=== PATIENT | female | born 1945 | race Caucasian/White ===

== ENCOUNTER 2020-01-27 09:48 | Emergency (ER) | payer BC, MEDICARE, SELFPAY ==
[2020-01-27 10:18] VITALS: BP 172/74; PULSE 63; RESP 16; TEMP 36.8; O2SAT 98; BMI 24.0
--- NOTE | 2020-01-27 10:26 | HMH.EDUTC ---
[facility] Disposition Clinical Impression: Exposure to COVID-19 virus Disposition: Home, Self-Care Condition on Discharge: Good Instructions: Preventing the Spread of Coronavirus Discharge Instructions Additional Instructions: Drink plenty of fluids. Take tylenol for pain or fever. Return if you begin to have difficulty breathing. Follow up with your regular doctor. GO TO THE ER FOR ANY WORSENING SYMPTOMS Referrals: Jesús Doyle MD [Primary Care Provider] - Time of Disposition: 10:46 Medical Decision Making - Medical Records Medical records reviewed: No: I reviewed the patient's medical records. - Pierre Inquiry Pt receiving controlled substance: No Vital Signs: 01/27/20 10:18 01/27/20 11:01 Temperature 98.3 F 98.5 F Temperature Source Oral Oral Pulse Rate 80 Pulse Rate [Right] 63 Respiratory Rate 16 16 Blood Pressure 170/72 H Blood Pressure [Right Arm] 172/74 H Blood Pressure Mean [Right Arm] 106 Blood Pressure Source Automatic Cuff Blood Pressure Source [Right Arm] Automatic Cuff Blood Pressure Position Sitting Blood Pressure Position [Right Arm] Sitting 02 Sat by Pulse Oximetry 98 Oxygen Delivery Method Room Air Room Air [facility] HPI - General Stated complaint: covid exposure Time Seen by Provider: 01/27/20 10:26 - History of Present Illness Provider Complaint: She has been exposed to covid. She denies any symptoms at this time. [facility] History - Hepatitis A Screen Attestation statement:: This patient has been screened for Hepatitis A risk factors. I have reviewed the patient's past medical history: Yes ROS Obtained: Yes All systems reviewed & no additional complaints - Constitutional Constitutional: Reports system reviewed and no additional complaints, except as docu - Eyes Eyes: Reports system reviewed and no additional complaints, except as docu - ENT Ears, Nose, Mouth, and Throat: Reports system reviewed and no additional complaints, except as docu - Cardiovascular Cardiovascular: Reports system reviewed and no additional complaints, except as docu - Respiratory Respiratory: Yes system reviewed and no additional complaints, except as docu - Gastrointestinal Gastrointestingal: Reports: system reviewed and no additional complaints, except as docu Physical Exam - General General appearance: alert, in no apparent distress - Head Head exam: atraumatic, normocephalic, normal inspection - Eye Eye exam: Present: normal appearance, PERRL, EOMI - ENT ENT exam: Present: normal exam, normal oropharynx, mucous membranes moist, TM's normal bilaterally, normal external ear exam - Neck Neck exam: Present: normal inspection, full ROM, trachea midline. Absent: meningismus, lymphadenopathy - Chest Chest inspection: Present: normal inspection, symmetric chest wall rise. Absent: tenderness - Respiratory Respiratory exam: Present: normal lung sounds bilaterally. Absent: respiratory distress - Cardiovascular Cardiovascular exam: Present: regular rate, normal rhythm. Absent: JVD - Abdominal Exam Abdominal exam: Present: soft, normal bowel sounds. Absent: distention, tenderness, guarding - Extremities Exam Extremities exam: Present: normal inspection, full ROM, normal capillary refill. Absent: calf tenderness - Back Exam Back exam: Present: normal inspection. Absent: tenderness - Neurological Exam Neurological exam: Present: alert, oriented X3 - Psychiatric Psychiatric exam: Present: normal affect, normal mood - Skin Skin exam: Present: warm, dry, intact, normal color - Lymphatic Lymphatic Findings: no adenopathy
[2020-01-27 11:01] VITALS: BP 170/72; PULSE 80; RESP 16; TEMP 36.9; O2SAT 98
== END 2020-01-27 11:02 | disposition home or self-care (01) ==
PROVIDERS: Emergency Provider Nurse Practitioner Family; PCP Family Medicine
DX: Z20.828 Contact with and (suspected) exposure to other viral communicable diseases (principal)
CPT/HCPCS: 99201; U0003

== ENCOUNTER 2023-05-01 19:07 | Emergency (ER) | payer MEDICARE, OTHER, SELFPAY ==
[2023-05-01 19:09] VITALS: BP 124/89; PULSE 93; RESP 16; TEMP 36.8; O2SAT 96; BMI 22.6
--- NOTE | 2023-05-01 19:39 | XR_ITS ---
PROCEDURE INFORMATION: Exam: XR Left Wrist Exam date and time: 05/01/2023 7:40 PM Age: 77 years old Clinical indication: Injury or trauma; Fall; Blunt trauma (contusions or hematomas); Wrist; Left TECHNIQUE: Imaging protocol: Radiologic exam of the left wrist. Views: 3 or more views. COMPARISON: No relevant prior studies available. FINDINGS: Bones/joints: No fracture or dislocation. Severe degenerative change at the 1st carpometacarpal joint. Moderate degenerative change at the STT joint. Osteopenia. Soft tissues: Normal. IMPRESSION: No fracture or dislocation.
--- NOTE | 2023-05-01 19:40 | XR_ITS ---
PROCEDURE INFORMATION: Exam: XR Left Knee Exam date and time: 05/01/2023 7:40 PM Age: 77 years old Clinical indication: Injury or trauma; Fall; Blunt trauma; Knee; Left TECHNIQUE: Imaging protocol: Radiologic exam of the left knee. Views: 3 views. COMPARISON: No relevant prior studies available. FINDINGS: Bones/joints: No fracture or dislocation. Moderate/severe tricompartmental degenerative joint disease. Osteopenia. Trace suprapatellar joint effusion. Soft tissues: Normal. IMPRESSION: No fracture or dislocation. Moderate/severe tricompartmental degenerative joint disease.
--- NOTE | 2023-05-01 20:39 | ED_ITS ---
Discharge Plan Disposition Patient Disposition: Home, Self-Care Chief Complaint: Fall Referrals Follow up/Referrals: Jesús Doyle MD [Primary Care Provider] - See instructions Activity Restrictions/Add. Instructions Additional Instructions/Restrictions: Talk to your family doctor about starting vitamin D supplementation for osteopenia. Call your family doctor to establish care for this visit to the emergency department and schedule follow-up within 48 hours to ensure improvement. If you have any worsening of your condition or any other concerning signs or symptoms, return to the emergency department or your primary care doctor for further evaluation. Clinical Impressions Clinical Impression: Traumatic ecchymosis of left hand Qualifiers: Encounter type: initial encounter Qualified Code(s): S60.222A - Contusion of left hand, initial encounter Traumatic ecchymosis of left knee Qualifiers: Encounter type: initial encounter Qualified Code(s): S80.02XA - Contusion of left knee, initial encounter Fall Qualifiers: Encounter type: initial encounter Qualified Code(s): W19.XXXA - Unspecified fall, initial encounter Discharge ED Provider: Curt Rankin General Adult HPI General Chief complaint: Fall Stated complaint: AO 05/01/23 1200 Injury left knee,left hand Time Seen by Provider: 05/01/23 19:12 Mode of Arrival: Ambulatory Source of Information: Patient and Relative Limitations: No Limitations Description of Symptoms (Recalled from ER Triage Doc. by RN): fell forward on left side- mostly left hand and left knee; no LOC History of Present Illness HPI narrative: Otherwise healthy 77-year-old female not currently taking any medications presenting with fall. States that she tripped over the carpet just prior to arrival. Braced her self with her left knee and left hand. Has bruising without pain on her left hand and left knee, no pain in her left knee or left hand at this time. Came in to make sure everything was okay. Related Data Allergies Allergy/AdvReac Type Severity Reaction Status Date / Time No Known Allergies Allergy Verified 05/01/23 19:39 [facility] Disclaimer: The information contained in this section may have been updated after the patient was seen, as this information can be updated by other users. Social History Smoking Status: Former smoker alcohol intake: never current occupational status: retired Travel in the last 8 weeks: None ROS Obtained: Yes All systems reviewed & no additional complaints except as documented Physical Exam General General appearance: alert and in no apparent distress Head Head exam: atraumatic and normocephalic Eye Eye exam: Present normal appearance, PERRL and EOMI ENT ENT exam: Present mucous membranes moist Neck Neck exam: Present normal inspection, full ROM and trachea midline Respiratory Respiratory exam: Absent respiratory distress, wheezes, stridor, accessory muscle use or prolonged expiratory phase Cardiovascular Cardiovascular exam: Present normal rhythm Abdominal Exam Abdominal exam: Present soft; Absent distention, tenderness, guarding, rebound or rigidity Extremities Exam Extremities exam: Present other (Bruising about left wrist/hand and left knee. Range of motion intact and full both areas. Neurovascularly intact distally both injuries. No evidence of tenderness); Absent edema Neurological Exam Neurological exam: Present alert, oriented X3, CN II-XII intact and normal gait; Absent motor sensory deficit Skin Skin exam: Present warm and dry; Absent diaphoresis or erythema Medical Decision Making Medical Records Medical records reviewed: Yes I reviewed the patient's medical records. Pierre Inquiry Pt receiving controlled substance: No Pierre was queried for this patient: No Vital Signs: 05/01/23 19:09 Temperature 98.3 F Temperature Source Oral Pulse Rate [Right Brachial] 93 H Respiratory Rate 16 Blood Pressure [Right Arm] 124/89 Blood Pressure Mean [Right Arm] 100 Blood Pressure Source [Right Arm] Automatic Cuff Blood Pressure Position [Right Arm] Sitting 02 Sat by Pulse Oximetry 96 Oxygen Delivery Method Room Air Orders (Tests/Meds): ORDERS Category Date Time Status Knee XR left 3 views [XR knee LT 3V] Stat Exams 05/01/23 19:40 Completed Wrist XR left minimum 3 views [XR wrist LT min 3V] Stat Exams 05/01/23 19:39 Completed Medical Decision Narrative: 77-year-old female who is otherwise healthy not taking any medications presenting with fall and left knee/left hand bruising. History was obtained via conversation with patient. On arrival, patient hemodynamically stable, alert, oriented x4, appropriate, GCS 15, moving all extremities spontaneously, pupils equal and reactive to light. Full physical exam performed and significant for bruising about left hand and left knee. Able to bear weight without issue. Range of motion intact and full left wrist and left hand. Neurovascularly intact both extremities. No outward signs of deformity no scaphoid tenderness. Differential includes fracture, sprain, dislocation, among others. Independent interpretation of x-rays demonstrated no bony abnormality of the hand or wrist. Also no bony abnormality acutely of the knee. Given patient presentation, workup, history, this most likely represents wrist and knee bruising in the setting of fall. Given low bone density which is apparent on x-rays, it was recommended that patient follow-up with her family doctor and begin taking vitamin D supplements. She is agreeable to this plan. Because patient at [facility] without signs or symptoms of clinical decompensation, deemed appropriate for discharge. Results were relayed to patient who voiced understanding and were agreeable to outpatient management and follow up. At the time of discharge the patient was hemodynamically stable, tolerating PO, and mobilizing appropriately. Critical Care Critical Care Time Critical Care Time: No
[2023-05-01 20:51] VITALS: BP 106/65; PULSE 106; RESP 18; TEMP 36.7; O2SAT 97
== END 2023-05-01 20:53 | disposition home or self-care (01) ==
PROVIDERS: Emergency Provider Emergency Medicine; PCP Family Medicine
DX: S60.222A Contusion of left hand, initial encounter (principal); S80.02XA Contusion of left knee, initial encounter; Z87.891 Personal history of nicotine dependence; W01.0XXA Fall on same level from slipping, tripping and stumbling without subsequent striking against object, initial encounter
CPT/HCPCS: 73110; 73562; 99283

== ENCOUNTER 2024-09-05 21:13 | Inpatient (IN) | payer OTHER, MEDICARE, SELFPAY ==
[2024-09-05] VITALS (7 sets, daily range): BP systolic 126–175; BP diastolic 84–123; PULSE 54–89; RESP 14–23; TEMP 36.5; O2SAT 94–98; BMI 25.7
--- NOTE | 2024-09-05 21:47 | XR_ITS ---
PROCEDURE INFORMATION: Exam: XR Chest Exam date and time: 09/05/2024 9:45 PM Age: 79 years old Clinical indication: Other: Possible pneumonia; Additional info: Confusion, possible pneumonia TECHNIQUE: Imaging protocol: Radiologic exam of the chest. Views: 2 views. COMPARISON: No relevant prior studies available. FINDINGS: Lungs: Unremarkable. No consolidation. Pleural spaces: Unremarkable. No pleural effusion. No pneumothorax. Heart/Mediastinum: Unremarkable. No cardiomegaly. Vasculature: Unremarkable. Bones/joints: Unremarkable. IMPRESSION: No acute findings.
--- NOTE | 2024-09-05 21:47 | CT_ITS ---
PROCEDURE INFORMATION: Exam: CT Head Without Contrast Exam date and time: 09/05/2024 10:05 PM Age: 79 years old Clinical indication: Other: Confusion; Additional info: Confusion, forehead bruising TECHNIQUE: Imaging protocol: Computed tomography of the head without contrast. Radiation optimization: All CT scans at this facility use at least one of these dose optimization techniques: automated exposure control; mA and/or kV adjustment per patient size (includes targeted exams where dose is matched to clinical indication); or iterative reconstruction. COMPARISON: CT HEAD/BRAIN WO CON 09/05/2024 10:05 PM FINDINGS: Brain: There is moderate diffuse cerebral volume loss present. Multiple subcortical and deep hypoattenuating white matter foci are present, likely related to small vessel senescent changes and can also be seen with prior infectious / inflammatory insult, or prior traumatic events. No hyperattenuating foci are identified to suggest acute intracranial hemorrhage. Cerebral ventricles: No ventriculomegaly. Paranasal sinuses: Visualized sinuses are unremarkable. No fluid levels. Mastoid air cells: Visualized mastoid air cells are well aerated. Bones: Unremarkable. No acute fracture. Soft tissues: Multiple subcutaneous calcified masses of the apical cranial soft tissues largest measures 2.7 cm in diameter suggesting epidermal inclusion cyst. IMPRESSION: 1. Multiple subcortical and deep hypoattenuating white matter foci are present, likely related to small vessel senescent changes and can also be seen with prior infectious / inflammatory insult, or prior traumatic events. 2. No hyperattenuating foci are identified to suggest acute intracranial hemorrhage.
--- NOTE | 2024-09-05 21:47 | CT_ITS ---
PROCEDURE INFORMATION: Exam: CT Cervical Spine Without Contrast Exam date and time: 09/05/2024 10:07 PM Age: 79 years old Clinical indication: Injury or trauma; Fall; Additional info: Suspected fall TECHNIQUE: Imaging protocol: Computed tomography of the cervical spine without contrast. Radiation optimization: All CT scans at this facility use at least one of these dose optimization techniques: automated exposure control; mA and/or kV adjustment per patient size (includes targeted exams where dose is matched to clinical indication); or iterative reconstruction. COMPARISON: CT HEAD/BRAIN WO CON 09/05/2024 10:05 PM FINDINGS: Bones: Moderate loss of intervertebral disc space with degenerative changes involving C3 through C7 with uncovertebral joint and facet osteoarthrosis resulting in [id number] bilateral neural foraminal stenosis at these levels greatest at C5-C6. The vertebral bodies are maintained in height and alignment. No evidence of acute osseous abnormality. Lungs: Lung apices are normal. Soft tissues: Unremarkable. IMPRESSION: No evidence of acute osseous abnormality.
--- NOTE | 2024-09-05 21:47 | XR_ITS ---
PROCEDURE INFORMATION: Exam: XR Abdomen Exam date and time: 09/05/2024 9:48 PM Age: 79 years old Clinical indication: Other: Abdominal distension TECHNIQUE: Imaging protocol: Radiologic exam of the abdomen. Views: Frontal supine view of the abdomen. 1 View. COMPARISON: CR Chest 09/05/2024 9:45 PM FINDINGS: Gastrointestinal tract: Significant fecal content within the rectum. No bowel dilation. Air distended stomach. Bones/joints: Prominent degenerative changes of the imaged spine. IMPRESSION: Significant fecal content within the rectum.
[2024-09-05 21:55] LABS: Hematocrit 44.7 % (37.0-47.0); Hemoglobin 14.4 g/dL (12.2-16.2); Immature Granulocytes % 0.3 %; Mean Corpuscular HGB Conc 32.2 g/dL (31.8-35.4); Mean Corpuscular Hemoglobin 29.1 pg (27.0-31.2); Mean Corpuscular Volume 90.3 fl (81-99); Nucleated Red Blood Cells % 0 %; Platelet Count 334 K/mm3 (142-424); Red Blood Count 4.95 M/mm3 (4.20-5.40); Red Cell Distribution Width-SD 43.2 fL; White Blood Count 9.0 K/mm3 (4.8-10.8)
--- NOTE | 2024-09-05 21:56 | [facility].EDGENADL ---
Discharge Plan Disposition Patient Disposition: Admitted Clinical Impressions Clinical Impression: Pneumonia, Fecal impaction in rectum, Acute UTI Discharge ED Provider: Wyatt Fountain General Adult HPI <Wyatt Fountain MD - Last Filed: 09/06/24 01:36> General Chief complaint: Fall Stated complaint: Possible fall with bruise to forehead,poor appitit Time Seen by Provider: 09/05/24 21:36 Mode of Arrival: Family Vehicle Source of Information: Relative Description of Symptoms (Recalled from ER Triage Doc. by RN): Pt presents to the ED accompanied by her daughter with c/o decreased oral intake, and lethargy. Pt's daughter reports that the pt has been confused X 2 years and family believes the pt has alzchiemers but the pt has not been to a doctor for approx 2 years since last fall. Pt's daughter rpeorts that the pt lives at home with her and is at home by herself while her works. Pt's daughter reports that the pt had an unwittnessed fall approx. 2 weeks ago. Pt has large bruise to forhead, lower extremities and arms. Pt denies and pain or symptoms. History of Present Illness HPI narrative: Abby Ace is a 79-year-old female with a past medical history of abdominal hernia who presents to the emergency department due to concern for family for her mental status and decreased energy and appetite. They state that over the last week, she has been more fatigued than normal and just wants to sleep and rest all the time. They state that she has been confused for some time and has been forgetting where she put things at home. They noted that she has a big bruise on her forehead but patient does not remember what caused this and family did not witness anything. Patient has no complaints at this time. She is alert and oriented to self and location but does not know the year. She does not know who the president is. Patient denies any abdominal pain, dysuria, chest pain, shortness of breath, headache or neck pain. Family notes that she does not go to her primary care doctor and they cannot convince her to go. They state that over the last week, she has had decreased oral intake and only eats a small amount of food, which is abnormal for her. Supposedly the fall that resulted in the forehead bruise happened approximately 2 weeks ago. Family is concerned patient may have Alzheimer's. Related Data Home Medications ?Medication ?Instructions ?Recorded ?Confirmed No Known Home Medications 09/06/24 09/06/24 Allergies Allergy/AdvReac Type Severity Reaction Status Date / Time No Known Allergies Allergy Verified 05/01/23 19:39 [facility] <yWatt Fountain MD - Last Filed: 09/06/24 01:36> [facility] Disclaimer: The information contained in this section may have been updated after the patient was seen, as this information can be updated by other users. Social History (Updated 05/01/23 @ 20:44 by Curt Rankin MD) Smoking Status: Former smoker alcohol intake: never current occupational status: retired Travel in the last 8 weeks?: None Have you lived/traveled outside [place] in past 30 days?: No Contact w/someone who lives/traveled outside US past 30 days?: No Exposure to someone with infectious disease in past 14 days?: No Do you have a fever (greater than 100.4 F or 38 C)?: No Have you tested positive for COVID-19?: No Exposed to someone with COVID-19 in past 14 days?: No Do you have a sore throat?: No Do you have a cough?: No Do you have any weakness?: No Do you have any diarrhea?: No Are you experiencing any unusual bleeding?: No Do you have any muscle aches/pain?: No Do you have any abdominal pain?: No Are you experiencing loss of taste or smell?: No <Wyatt Fountain MD - Last Filed: 09/06/24 01:36> ROS Obtained: Yes Systems reviewed as appropriate & no additional complaints except as documented Physical Exam <Wyatt Fountain MD - Last Filed: 09/06/24 01:36> General General appearance: alert and in no apparent distress Head Head exam: other (Bruising that appears old to the right forehead) Eye Eye exam: Present normal appearance ENT ENT exam: Present normal external ear exam Neck Neck exam: Present full ROM Chest Chest inspection: Present symmetric chest wall rise Respiratory Respiratory exam: Present normal lung sounds bilaterally; Absent respiratory distress Cardiovascular Cardiovascular exam: Present regular rate and normal rhythm Abdominal Exam Abdominal exam: Present soft; Absent tenderness or guarding Extremities Exam Extremities exam: Present normal inspection, full ROM and other Back Exam Back exam: Present normal inspection; Absent tenderness Neurological Exam Neurological exam: Present alert and oriented X3 Psychiatric Psychiatric exam: Present normal affect Skin Skin exam: Present warm, dry and other (bruising to the right elbow) Medical Decision Making <Wyatt Fountain MD - Last Filed: 09/06/24 01:36> Medical Records Screening: Per USPSTF and CDC recommendations, given the prevalence of disease in our region, it is our hospital?s policy to screen for HIV and viral Hepatitis for all patients aged 18 and over and those with ongoing risk factors. Pierre Inquiry Pt receiving controlled substance: No Vital Signs: 09/05/24 21:24 09/05/24 21:30 09/05/24 21:35 Temperature 97.7 F Temperature Source Oral Pulse Rate 89 88 Pulse Rate [Right] 82 Respiratory Rate 14 Blood Pressure 151/98 H 126/92 H Blood Pressure [Right Arm] 151/98 H Blood Pressure Mean Blood Pressure Mean [Right Arm] 115 Blood Pressure Source Blood Pressure Source [Right Arm] Automatic Cuff Blood Pressure Position Blood Pressure Position [Right Arm] Sitting 02 Sat by Pulse Oximetry 96 98 94 L Oxygen Delivery Method Room Air 09/05/24 22:31 09/05/24 23:01 09/05/24 23:28 Temperature Temperature Source Pulse Rate 54 L 59 L 83 Pulse Rate [Right] Respiratory Rate 23 21 Blood Pressure 175/85 H 131/106 H 152/123 H Blood Pressure [Right Arm] Blood Pressure Mean 127 Blood Pressure Mean [Right Arm] Blood Pressure Source Blood Pressure Source [Right Arm] Blood Pressure Position Blood Pressure Position [Right Arm] 02 Sat by Pulse Oximetry 95 97 96 Oxygen Delivery Method 09/05/24 23:30 09/06/24 00:01 09/06/24 00:08 Temperature 97.7 F Temperature Source Oral Pulse Rate 83 82 82 Pulse Rate [Right] Respiratory Rate 16 17 17 Blood Pressure 154/84 H 128/78 128/78 Blood Pressure [Right Arm] Blood Pressure Mean 133 94 Blood Pressure Mean [Right Arm] Blood Pressure Source Automatic Cuff Blood Pressure Source [Right Arm] Blood Pressure Position Sitting Blood Pressure Position [Right Arm] 02 Sat by Pulse Oximetry 96 Oxygen Delivery Method Room Air Lab Data Lab Results 09/05/24 21:30: WBC 9.0, RBC 4.95, Hgb 14.4, Hct 44.7, MCV 90.3, MCH 29.1, MCHC 32.2, RDW 13.2, Plt Count 334, MPV 11.7 H, Neut % (Auto) 78.3, Lymph % (Auto) 14.5, Ector % (Auto) 6.6, Eos % (Auto) 0.2, Baso % (Auto) 0.1, Neut # (Auto) 7.0, Lymph # (Auto) 1.3, Ector # (Auto) 0.6, Eos # (Auto) 0.0, Baso # (Auto) 0.0, Sodium 138, Potassium 4.0, Chloride 98, Carbon Dioxide 27, Anion Gap 17.0 H, BUN 28 H, Creatinine 0.80, Estimated Creat Clear 51, Estimated GFR 70, Est GFR ( Amer) 84, Glucose 95, Calcium 8.6, Magnesium 2.0, Total Bilirubin 1.6 H, AST 30, ALT 14, Alkaline Phosphatase 74, Troponin I < 0.01, NT-Pro-B Natriuret Pep 1170 H, Total Protein 7.5, Albumin 3.7, Globulin 3.8 H, Albumin/Globulin Ratio 1.0 L, TSH 0.80, Free T4 1.73, HCV Ab RICHA w/Rflx PCR Qn Negative, HIV Ag/Ab Combo Qual Negative 09/05/24 21:47: VBG pH 7.39, VBG pCO2 40.5, VBG pO2 44.0 H, VBG HCO3 23.7, VBG Total CO2 24.9, VBG O2 Saturation 80.1 H, VBG Base Excess -1.4, VBG Lactic Acid 2.4 H 09/05/24 23:28: Urine WBC 10-20, Ur Squamous Epith Cells 5-10, Urine Bacteria 2+ 09/05/24 21:30 09/05/24 21:30 Orders (Tests/Meds): ED MEDICATIONS Generic Name Dose Route Start Last Admin Trade Name Freq PRN Reason Stop Dose Admin Acetaminophen 650 mg 09/05/24 23:49 Acetaminophen 325mg Tab PO 10/05/24 23:48 Q6HP PRN Fever or Mild Pain (1-3) Ceftriaxone Sodium 1 gm/ 50 mls @ 100 mls/hr 09/05/24 23:49 Sodium Chloride IV 09/06/24 00:18 ONCE ONE Magnesium Citrate 10 oz 09/05/24 23:49 Magnesium Citrate 10oz Bottle PO 09/05/24 23:50 ONCE ONE Senna/Docusate Sodium 1 tab 09/06/24 09:00 Sennosides 8.6mg/Docusate 50mg Tablet PO 10/06/24 08:59 DAILY TERESA Sodium Chloride 10 ml 09/05/24 22:20 09/05/24 22:23 Sodium Chloride 0.9% 10ml Syr (Rad Only) IV 10/05/24 22:19 10 ml NEEDED PRN Administration Maintain IV Site Sodium Phosphate 133 ml 09/05/24 23:49 Sodium Phos/Biphosphate Fleet 133ml Enema RC 09/05/24 23:50 ONCE ONE Discontinued Medications Generic Name Dose Route Start Last Admin Trade Name Janet PRN Reason Stop Dose Admin Lactated Ringer's 500 mls @ 999 mls/hr 09/05/24 22:02 09/05/24 22:11 Lactated Ringer's 500ml IV 09/05/24 22:32 999 mls/hr .Q31M ONE Administration Iopamidol 70 ml 09/05/24 22:20 09/05/24 22:23 Iopamidol-370 (76%);100ml Bottle IV 09/05/24 22:21 70 ml ONCE ONE Administration Sodium Chloride 50 ml 09/05/24 22:20 09/05/24 22:23 0.9 % Sodium Chloride 50 Ml Vial IV 09/05/24 22:21 50 ml ONCE ONE Administration ORDERS Category Date Time Status CT abdomen pelvis w con Stat Cat Scan 09/05/24 22:[address] angio chest PE protocol Stat Cat Scan 09/05/24 22:[address] cervical spine wo con Stat Cat Scan 09/05/24 21:[address] head/brain wo con Stat Cat Scan 09/05/24 21:47 Completed CXR 2 view (NOT portable) [XR chest 2V] Stat Exams 09/05/24 21:47 Completed KUB (single view) [XR KUB] Stat Exams 09/05/24 21:47 Completed BNP [NT Pro Brain Natriuretic Pep.] Stat Lab 09/05/24 21:30 Completed CBC w/Auto Diff [Complete Blood Count Auto Diff] Stat Lab 09/05/24 21:30 Completed CMP [Comprehensive Metabolic Panel] Stat Lab 09/05/24 21:30 Completed Free T4 (Free Thyroxine) Stat Lab 09/05/24 21:30 Completed HIV Combo Stat Lab 09/05/24 21:30 Completed Hepatitis C Ab Qual. W/ RFX Stat Lab 09/05/24 21:30 Completed Magnesium Stat Lab 09/05/24 21:30 Completed TSH [Thyroid Stimulating Hormone] Stat Lab 09/05/24 21:30 Completed Troponin I Q3H Lab 09/06/24 01:45 Ordered Troponin I Q3H Lab 09/06/24 04:45 Ordered Troponin I Stat Lab 09/05/24 21:30 Completed UA [Urinalysis and Microscopic] Stat Lab 09/05/24 23:28 Results Urine Culture Stat Micro 09/05/24 23:28 Received VBG [Venous Blood Gas] Stat RT 09/05/24 21:47 Completed ECG Data Tracing #1: I reviewed this ECG and interpreted as documented below: Atrial fibrillation with a ventricular rate of 88 bpm. Left bundle branch block but no STEMI based on Sgarbossa criteria. QTc normal at 423. Medical Decision Narrative: Abby Ace is a 79-year-old female with a past medical history of abdominal hernia who presents to the emergency department due to concern for family for her mental status and decreased energy and appetite. They state that over the last week, she has been more fatigued than normal and just wants to sleep and rest all the time. They state that she has been confused for some time and has been forgetting where she put things at home. They noted that she has a big bruise on her forehead but patient does not remember what caused this and family did not witness anything. Patient has no complaints at this time. She is alert and oriented to self and location but does not know the year. She does not know who the president is. Patient denies any abdominal pain, dysuria, chest pain, shortness of breath, headache or neck pain. Family notes that she does not go to her primary care doctor and they cannot convince her to go. They state that over the last week, she has had decreased oral intake and only eats a small amount of food, which is abnormal for her. Supposedly the fall that resulted in the forehead bruise happened approximately 2 weeks ago. Family is concerned patient may have Alzheimer's. At this time, patient's UDS, troponin, BNP and radiology interpretation of CT imaging was pending. Patient's workup otherwise showed no leukocytosis or anemia on CBC. VBG with mildly elevated lactate of 2.4 (patient was given 500 cc of lactated ringer), normal pH. Electrolytes unremarkable, anion gap mildly elevated at 17. BUN of 28 creatinine normal at 0.8. Bilirubin is mildly elevated at 1.6. Thyroid studies unremarkable. CT imaging was interpreted by me personally prior to official reads. No intracranial hemorrhage or mass or midline shift is appreciated. No cervical spine fractures. Few small areas of nonspecific groundglass opacities in the right upper lobe. CT abdomen pelvis demonstrates large amount of stool in the distal colon likely representing a fecal impaction. Patient has 2 large gallstones in the gallbladder without evidence of cholecystitis. Patient's care was handed off to the oncoming physician, Dr. Lees, pending completion of her workup. She will likely require admission for bowel cleanout and functional decline. Yoana CARPIO: I assumed care of the patient at the time of handoff from the prior provider. CT imaging was independently interpreted by me and significant for large rectal stool ball without evidence of stercoral colitis, large abdominal hernia without evidence of obstruction. CT chest shows signs consistent with pneumonia. Urinalysis interpreted by me is consistent with UTI. Interactive discussion was had with Dr. Henderson on-call who accepted the patient for admission. Patient was initiated on ceftriaxone for treatment of pneumonia and UTI. Patient was initiated on mag citrate, Doc senna and enemas for bowel regimen. <Brian Lees MD - Last Filed: 09/06/24 01:35> Vital Signs: 09/05/24 21:24 09/05/24 21:30 09/05/24 21:35 Temperature 97.7 F Temperature Source Oral Pulse Rate 89 88 Pulse Rate [Right] 82 Respiratory Rate 14 Blood Pressure 151/98 H 126/92 H Blood Pressure [Right Arm] 151/98 H Blood Pressure Mean Blood Pressure Mean [Right Arm] 115 Blood Pressure Source Blood Pressure Source [Right Arm] Automatic Cuff Blood Pressure Position Blood Pressure Position [Right Arm] Sitting 02 Sat by Pulse Oximetry 96 98 94 L Oxygen Delivery Method Room Air 09/05/24 22:31 09/05/24 23:01 09/05/24 23:28 Temperature Temperature Source Pulse Rate 54 L 59 L 83 Pulse Rate [Right] Respiratory Rate 23 21 Blood Pressure 175/85 H 131/106 H 152/123 H Blood Pressure [Right Arm] Blood Pressure Mean 127 Blood Pressure Mean [Right Arm] Blood Pressure Source Blood Pressure Source [Right Arm] Blood Pressure Position Blood Pressure Position [Right Arm] 02 Sat by Pulse Oximetry 95 97 96 Oxygen Delivery Method 09/05/24 23:30 09/06/24 00:01 09/06/24 00:08 Temperature 97.7 F Temperature Source Oral Pulse Rate 83 82 82 Pulse Rate [Right] Respiratory Rate 16 17 17 Blood Pressure 154/84 H 128/78 128/78 Blood Pressure [Right Arm] Blood Pressure Mean 133 94 Blood Pressure Mean [Right Arm] Blood Pressure Source Automatic Cuff Blood Pressure Source [Right Arm] Blood Pressure Position Sitting Blood Pressure Position [Right Arm] 02 Sat by Pulse Oximetry 96 Oxygen Delivery Method Room Air Lab Data Lab Results 09/05/24 21:30: WBC 9.0, RBC 4.95, Hgb 14.4, Hct 44.7, MCV 90.3, MCH 29.1, MCHC 32.2, RDW 13.2, Plt Count 334, MPV 11.7 H, Neut % (Auto) 78.3, Lymph % (Auto) 14.5, Ector % (Auto) 6.6, Eos % (Auto) 0.2, Baso % (Auto) 0.1, Neut # (Auto) 7.0, Lymph # (Auto) 1.3, Ector # (Auto) 0.6, Eos # (Auto) 0.0, Baso # (Auto) 0.0, Sodium 138, Potassium 4.0, Chloride 98, Carbon Dioxide 27, Anion Gap 17.0 H, BUN 28 H, Creatinine 0.80, Estimated Creat Clear 51, Estimated GFR 70, Est GFR ( Amer) 84, Glucose 95, Calcium 8.6, Magnesium 2.0, Total Bilirubin 1.6 H, AST 30, ALT 14, Alkaline Phosphatase 74, Troponin I < 0.01, NT-Pro-B Natriuret Pep 1170 H, Total Protein 7.5, Albumin 3.7, Globulin 3.8 H, Albumin/Globulin Ratio 1.0 L, TSH 0.80, Free T4 1.73, HCV Ab RICHA w/Rflx PCR Qn Negative, HIV Ag/Ab Combo Qual Negative 09/05/24 21:47: VBG pH 7.39, VBG pCO2 40.5, VBG pO2 44.0 H, VBG HCO3 23.7, VBG Total CO2 24.9, VBG O2 Saturation 80.1 H, VBG Base Excess -1.4, VBG Lactic Acid 2.4 H 09/05/24 23:28: Urine WBC 10-20, Ur Squamous Epith Cells 5-10, Urine Bacteria 2+ Orders (Tests/Meds): ED MEDICATIONS Generic Name Dose Route Start Last Admin Trade Name Janet PRN Reason Stop Dose Admin Acetaminophen 650 mg 09/05/24 23:49 Acetaminophen 325mg Tab PO 10/05/24 23:48 Q6HP PRN Fever or Mild Pain (1-3) Ceftriaxone Sodium 1 gm/ 50 mls @ 100 mls/hr 09/05/24 23:49 Sodium Chloride IV 09/06/24 00:18 ONCE ONE Magnesium Citrate 10 oz 09/05/24 23:49 Magnesium Citrate 10oz Bottle PO 09/05/24 23:50 ONCE ONE Senna/Docusate Sodium 1 tab 09/06/24 09:00 Sennosides 8.6mg/Docusate 50mg Tablet PO 10/06/24 08:59 DAILY TERESA Sodium Chloride 10 ml 09/05/24 22:20 09/05/24 22:23 Sodium Chloride 0.9% 10ml Syr (Rad Only) IV 10/05/24 22:19 10 ml NEEDED PRN Administration Maintain IV Site Sodium Phosphate 133 ml 09/05/24 23:49 Sodium Phos/Biphosphate Fleet 133ml Enema RC 09/05/24 23:50 ONCE ONE Discontinued Medications Generic Name Dose Route Start Last Admin Trade Name Janet PRN Reason Stop Dose Admin Lactated Ringer's 500 mls @ 999 mls/hr 09/05/24 22:02 09/05/24 22:11 Lactated Ringer's 500ml IV 09/05/24 22:32 999 mls/hr .Q31M ONE Administration Iopamidol 70 ml 09/05/24 22:20 09/05/24 22:23 Iopamidol-370 (76%);100ml Bottle IV 09/05/24 22:21 70 ml ONCE ONE Administration Sodium Chloride 50 ml 09/05/24 22:20 09/05/24 22:23 0.9 % Sodium Chloride 50 Ml Vial IV 09/05/24 22:21 50 ml ONCE ONE Administration ORDERS Category Date Time Status CT abdomen pelvis w con Stat Cat Scan 09/05/24 22:[address] angio chest PE protocol Stat Cat Scan 09/05/24 22:[address] cervical spine wo con Stat Cat Scan 09/05/24 21:[address] head/brain wo con Stat Cat Scan 09/05/24 21:47 Completed CXR 2 view (NOT portable) [XR chest 2V] Stat Exams 09/05/24 21:47 Completed KUB (single view) [XR KUB] Stat Exams 09/05/24 21:47 Completed BNP [NT Pro Brain Natriuretic Pep.] Stat Lab 09/05/24 21:30 Completed CBC w/Auto Diff [Complete Blood Count Auto Diff] Stat Lab 09/05/24 21:30 Completed CMP [Comprehensive Metabolic Panel] Stat Lab 09/05/24 21:30 Completed Free T4 (Free Thyroxine) Stat Lab 09/05/24 21:30 Completed HIV Combo Stat Lab 09/05/24 21:30 Completed Hepatitis C Ab Qual. W/ RFX Stat Lab 09/05/24 21:30 Completed Magnesium Stat Lab 09/05/24 21:30 Completed TSH [Thyroid Stimulating Hormone] Stat Lab 09/05/24 21:30 Completed Troponin I Q3H Lab 09/06/24 01:45 Ordered Troponin I Q3H Lab 09/06/24 04:45 Ordered Troponin I Stat Lab 09/05/24 21:30 Completed UA [Urinalysis and Microscopic] Stat Lab 09/05/24 23:28 Results Urine Culture Stat Micro 09/05/24 23:28 Received VBG [Venous Blood Gas] Stat RT 09/05/24 21:47 Completed Medical Decision Narrative: Abby Ace is a 79-year-old female with a past medical history of abdominal hernia who presents to the emergency department due to concern for family for her mental status and decreased energy and appetite. They state that over the last week, she has been more fatigued than normal and just wants to sleep and rest all the time. They state that she has been confused for some time and has been forgetting where she put things at home. They noted that she has a big bruise on her forehead but patient does not remember what caused this and family did not witness anything. Patient has no complaints at this time. She is alert and oriented to self and location but does not know the year. She does not know who the president is. Patient denies any abdominal pain, dysuria, chest pain, shortness of breath, headache or neck pain. Family notes that she does not go to her primary care doctor and they cannot convince her to go. They state that over the last week, she has had decreased oral intake and only eats a small amount of food, which is abnormal for her. Supposedly the fall that resulted in the forehead bruise happened approximately 2 weeks ago. Family is concerned patient may have Alzheimer's. Yoana CARPIO: I assumed care of the patient at the time of handoff from the prior provider. CT imaging was independently interpreted by me and significant for large rectal stool ball without evidence of stercoral colitis, large abdominal hernia without evidence of obstruction. CT chest shows signs consistent with pneumonia. Urinalysis interpreted by me is consistent with UTI. Interactive discussion was had with Dr. Henderson on-call who accepted the patient for admission. Patient was initiated on ceftriaxone for treatment of pneumonia and UTI. Patient was initiated on mag citrate, Doc senna and enemas for bowel regimen. Critical Care <Brian Lees MD - Last Filed: 09/06/24 01:35> Critical Care Time Critical Care Time: No
[2024-09-05 22:00] LABS: VBG HCO3 23.7 mmol/L (23-30); VBG PCO2 40.5 mmol/L (35-51); VBG PH 7.39 mmol/L (7.31-7.41); VBG PO2 44.0 mmol/L (28-40)
[2024-09-05 22:01] LABS: Lactate Venous 2.4 mmol/L (0.4-2.0)
--- NOTE | 2024-09-05 22:02 | CT_ITS ---
PROCEDURE INFORMATION: Exam: CT Abdomen And Pelvis With Contrast Exam date and time: 09/05/2024 10:14 PM Age: 79 years old Clinical indication: Other: Abdominal distension; Additional info: Abdominal distension, AMS TECHNIQUE: Imaging protocol: Computed tomography of the abdomen and pelvis with contrast. 3D rendering (Not supervised by radiologist): MIP and/or 3D reconstructed images were created by the technologist. Radiation optimization: All CT scans at this facility use at least one of these dose optimization techniques: automated exposure control; mA and/or kV adjustment per patient size (includes targeted exams where dose is matched to clinical indication); or iterative reconstruction. Contrast material: ISOVUE; Contrast volume: 70 ml; Contrast route: IV; COMPARISON: CR XR KUB 09/05/2024 9:48 PM FINDINGS: Lungs: No acute finding. Heart: The heart is enlarged. Liver: Normal. No mass. Gallbladder and biliary ducts: Several large gallstones are noted without acute inflammation. No biliary ductal dilation. Pancreas: Normal. No ductal dilation. Spleen: Normal. No splenomegaly. Adrenal glands: 13 x 29 mm left adrenal nodule. 12 x 15 mm right adrenal nodule. Kidneys and ureters: Normal. No hydronephrosis. Stomach and bowel: There is significant fecal content within the rectum with rectal diameter measuring up to 10 cm. No rectal wall thickening. There is left colon diverticulosis without acute inflammation. No bowel obstruction. No mucosal thickening. Appendix: No evidence of appendicitis. Intraperitoneal space: Unremarkable. No free air. No significant fluid collection. Vasculature: Mild calcific atherosclerotic disease without aneurysm or dissection. Lymph nodes: Unremarkable. No enlarged lymph nodes. Urinary bladder: Unremarkable as visualized. Reproductive: Unremarkable as visualized. Bones/joints: There are moderate to severe degenerative changes of the spine. Grade 1 spondylolisthesis is noted L3-L4 and L4-L5. No acute fracture. Soft tissues: There is a left anterior mid abdominal wall hernia containing loops of small bowel and colon without obstruction. The abdominal wall defect measures up to 3.6 cm in diameter. The hernia sac measures approximately 6.4 x 8.4 x 10.9 cm. IMPRESSION: 1. Large left mid abdominal wall hernia containing large and small bowel without obstruction. 2. Significant fecal content within the rectum with rectal diameter measuring up to 10 cm. 3. Bilateral adrenal nodules. Non-emergent adrenal CT is recommended. (Reference: [facility]-J[facility]) 4. Other nonurgent findings as noted. REFERENCES: Belinda UNDERWOOD, et al. Management of Incidental Adrenal Masses: A White Paper of the ACR Incidental Findings Committee. J Am Souleymane Radiol. 2017;14(8):2790-1785.
--- NOTE | 2024-09-05 22:02 | CT_ITS ---
PROCEDURE INFORMATION: Exam: CTA Chest With Contrast Exam date and time: 09/05/2024 10:14 PM Age: 79 years old Clinical indication: Other: AMS TECHNIQUE: Imaging protocol: Computed tomographic angiography of the chest with contrast. Exam focused on the arteries. 3D rendering (Not supervised by radiologist): MIP and/or 3D reconstructed images were created by the technologist. Radiation optimization: All CT scans at this facility use at least one of these dose optimization techniques: automated exposure control; mA and/or kV adjustment per patient size (includes targeted exams where dose is matched to clinical indication); or iterative reconstruction. Contrast material: ISOVUE; Contrast volume: 70 ml; Contrast route: INTRAVENOUS (IV); COMPARISON: CR Chest 09/05/2024 9:45 PM FINDINGS: Pulmonary arteries: Normal. No pulmonary emboli. Aorta: Unremarkable. No aortic aneurysm. No aortic dissection. Lungs: Diffuse ground-glass opacity within the apical and posterior segments of the right upper lobe and superior segment right lower lobe. There is associated mild reticular interstitial prominence as well. The lungs are otherwise clear. There is a calcified granuloma within the anterior right upper lobe. Pleural spaces: Unremarkable. No pneumothorax. No pleural effusion. Heart: The heart is enlarged. Lymph nodes: There are small calcified mediastinal and right hilar lymph nodes. Bones/joints: There are moderate degenerative changes of the spine. No acute fracture. Soft tissues: Unremarkable. IMPRESSION: 1. No pulmonary embolus. 2. Ground-glass opacity right upper lobe and superior segment right lower lobe with associated mild reticular interstitial prominence likely represents acute inflammation/pneumonitis. Follow-up is recommended to ensure clearing. 3. Findings consistent with prior granulomatous exposure. 4. Other nonemergent findings as noted.
[2024-09-05 22:03] LABS: Alanine Aminotransferase 14 U/L (12-78); Albumin Level 3.7 g/dl (3.5-5.0); Albumin/Globulin Ratio 1.0 (1.1-1.8); Alkaline Phosphatase 74 U/L (38-126); Anion Gap 17.0 mEq/L (5-15); Aspartate Amino Transferase 30 U/L (14-36); Bilirubin,Total 1.6 mg/dl (0.2-1.3); Blood Urea Nitrogen 28 mg/dl (7-17); Calcium 8.6 mg/dl (8.4-10.2); Carbon Dioxide 27 mmol/L (22.0-30.0); Chloride 98 mmol/L (98-107); Creatinine Clearance Estimated 51 mL/min (50-200); Creatinine,Serum 0.80 mg/dl (0.52-1.04); Estimated Glomerular Filt Rate 70 ml/min (>60); GFR (African American) 84 ML/MIN (>60); Globulin 3.8 g/dL (1.3-3.2); Glucose 95 mg/dl (74-100); Potassium 4.0 mmoL/L (3.5-5.1); Sodium 138 mmol/L (136-145); Total Protein,Serum 7.5 g/dl (6.3-8.2)
[2024-09-05 22:11] LABS: Magnesium 2.0 mg/dl (1.6-2.3)
[2024-09-05] MEDS: RINGERS SOLUTION,LACTATED 500 ML 999 ML IV (22:11)
[2024-09-05] MEDS: 0.9 % SODIUM CHLORIDE 50 ML VIAL IV (22:23)
[2024-09-05] MEDS: SODIUM CHLORIDE 0.9% 10ML SYR (RAD ONLY) 10 ML IV (22:23)
[2024-09-05] MEDS: IOPAMIDOL-370 (76%);100ML BOTTLE 70 ML IV (22:23)
[2024-09-05 22:28] LABS: Free T4 (Free Thyroxine) 1.73 ng/dl (0.78-2.19)
--- NOTE | 2024-09-05 22:29 | ECG_ITS ---
APPROVED REPORT Exam: Resting ECG HR:88 bpm ECG Measurements Heart Rate 88 AXES QRSd 134 QRS -59 QT 377 T 65 QTc 423 Conclusion ATRIAL FIBRILLATION LEFT AXIS DEVIATION [QRS AXIS < -30] LEFT BUNDLE BRANCH BLOCK [120+ ms QRS DURATION, 80+ ms Q/S IN V1/V2, 85+ ms R IN I/aVL/V5/V6] ABNORMAL ECG Electronically signed by : RALF GRIDER, 09/06/2024 08:12:30
[2024-09-05 22:33] LABS: Thyroid Stimulating Hormone 0.80 uIU/mL (0.465-4.68)
[2024-09-05 22:59] LABS: NT Pro Brain Natriuretic Pep. 1170 pg/mL (0-450)
[2024-09-05 23:00] LABS: Hepatitis C Ab Qual. W/ RFX NEGATIVE (Negative)
[2024-09-05 23:03] LABS: Troponin I < 0.01 ng/ml (0.00-0.034)
[2024-09-05 23:33] LABS: Microscopic, Urine URINE MICROSCOPIC (MICROSCOPIC)
[2024-09-05 23:39] LABS: Color,Urine YELLOW (Yellow); Glucose,Urine (UA) Negative (Negative); Ketones,Urine 1+ (Negative); Leukocyte Esterase,Urine TRACE (Negative); PH,Urine 6.0 (5.0-8.5); Protein,Urine TRACE (Negative); Specific Gravity, Urine 1.020 (1.005-1.030); Urobilinogen,Urine 2.0 EU/dl (0.2)
[2024-09-06] VITALS (7 sets, daily range): BP systolic 107–132; BP diastolic 54–78; PULSE 60–100; RESP 15–17; TEMP 36.5–37; O2SAT 96–99; BMI 22.7
[2024-09-06 00:05] LABS: Bilirubin,Urine 2+ (Negative)
[2024-09-06 00:07] LABS: Bacteria,Urine 2+ /lpf
[2024-09-06] MEDS: CEFTRIAXONE 1 GM 1 GM in 0.9 % SODIUM CHLORIDE 50 ML IV ×2 (00:30→14:59)
[2024-09-06 01:52] LABS: Reflex Lactic Add Lactic Reflex
[2024-09-06 02:25] LABS: Lactic Acid Follow Up (RFLX 1) 1.6 mmol/L (0.7-2.1)
[2024-09-06 02:44] LABS: Troponin I < 0.01 ng/ml (0.00-0.034)
[2024-09-06 05:18] LABS: Troponin I < 0.01 ng/ml (0.00-0.034)
--- NOTE | 2024-09-06 06:37 | PC.NURSE ---
New Admit. V/s, alert to self and place only, pt's baseline family stated. Pt had a recent fall so pt had bruises to face, and scattered bruises to arms and legs upon admission. Pt tolerated IV ABX. Plan of care ongoing.
--- NOTE | 2024-09-06 07:57 | P.HP_ITS ---
History of Present Illness *Admission Date: 09/05/24 *Reason for visit:: Altered mental status with recent decline. *History of present illness: History of Present Illness HPI narrative: Abby Ace is a 79-year-old female with a past medical history of abdominal hernia who presents to the emergency department due to concern for family for her mental status and decreased energy and appetite. They state that over the last week, she has been more fatigued than normal and just wants to sleep and rest all the time. They state that she has been confused for some time and has been forgetting where she put things at home. They noted that she has a big bruise on her forehead but patient does not remember what caused this and family did not witness anything. Patient has no complaints at this time. She is alert and oriented to self and location but does not know the year. She does not know who the president is. Patient denies any abdominal pain, dysuria, chest pain, shortness of breath, headache or neck pain. Family notes that she does not go to her primary care doctor and they cannot convince her to go. They state that over the last week, she has had decreased oral intake and only eats a small amount of food, which is abnormal for her. Supposedly the fall that resulted in the forehead bruise happened approximately 2 weeks ago. Family is concerned patient may have Alzheimer's. The above as per ER documentation. . Ms. Ace is a 79-year-old female unknown to [facility]. She takes no medicines. Today with interview and assessment she denies any problems. She states she has just not felt well recently. Family is not present for this assessment and all history is obtained from her. See above information obtained from family in the emergency room. She states she is healthy and has no pain, no nausea or vomiting. She does not not feel like eating breakfast this morning. She does not recall any recent falls. With evaluation in the emergency room she had multiple scans and was felt to have a urinary tract infection and possibly pneumonia.She was found to have a fecal impaction. White blood cell count was 9000 with a hemoglobin of 14.4 and hematocrit of 44.7. Bilirubin was elevated at 1.6. TSH was found to be 0.8. She was given a dose of Rocephin 1 g IV. The mag citrate was not given and the fleets enema was not given. She was given a liter of IV fluids. CTA of the chest showed no pulmonary embolism, ground glass opacity in the right upper lobe and superior segment of the right lower lobe with associated mild reticular interstitial prominence likely representing acute inflammation or pneumonitis. CT of the abdomen showed a large left mid abdominal wall hernia containing large and small bowel without obstruction, significant fecal content within the rectum with a rectal diameter measuring 10 cm, bilateral adrenal nodules. CT of the head showed multiple subcortical and deep hypoattenuating white matter foci present likely related to small vessel changes and also can be seen with prior infectious inflammatory insult or prior traumatic event. Nothing to suggest acute intracranial hemorrhage. Cervical spine CT showed no evidence of acute abnormality. EKG shows atrial Fib [facility] Disclaimer: The information contained in this section may have been updated after the patient was seen, as this information can be updated by other users. Social History (Updated 05/01/23 @ 20:44 by Curt Rankin MD) Smoking Status: Former smoker alcohol intake: never current occupational status: retired Travel in the last 8 weeks?: None Have you lived/traveled outside [place] in past 30 days?: No Contact w/someone who lives/traveled outside US past 30 days?: No Exposure to someone with infectious disease in past 14 days?: No Do you have a fever (greater than 100.4 F or 38 C)?: No Have you tested positive for COVID-19?: No Exposed to someone with COVID-19 in past 14 days?: No Do you have a sore throat?: No Do you have a cough?: No Do you have any weakness?: No Do you have any diarrhea?: No Are you experiencing any unusual bleeding?: No Do you have any muscle aches/pain?: No Do you have any abdominal pain?: No Are you experiencing loss of taste or smell?: No Other Medical History Have you received the Flu Vaccine for this season: No Have you received the Pneumonia Vaccine: No Review of Systems Constitutional Constitutional: Reports daytime sleepiness (According to family), Denies difficulty sleeping, Denies fever(s), Denies frequent falls and Denies headache(s) Eyes Eyes: Denies change in vision ENT Ears, Nose, Mouth, and Throat: Denies otalgia, Denies headache(s), Denies nasal congestion, Denies post nasal drip and Denies sore throat *Cardiovascular Cardiovascular: Denies chest pain, Denies dyspnea, Denies irregular heart rhythm and Denies leg edema *Respiratory Respiratory: Denies chest congestion, Denies cough and Denies dyspnea *Gastrointestinal Gastrointestinal: Denies abdominal pain, Denies constipation, Denies dyspepsia, Denies loose stools, Denies nausea and Denies vomiting *Genitourinary Genitourinary: Denies difficulty voiding *Musculoskeletal Musculoskeletal: Denies arthralgias, Denies muscle weakness and Denies myalgias *Neurologic Neurologic: Denies abnormal speech, Reports confusion (Family reports altered mental status), Denies frequent falls, Denies headache(s) and Reports memory loss Psychiatric Psychiatric: Reports confusion (Family reports altered mental status) and Re ports memory loss Meds Home Medications and Allergies Home Medications ?Medication ?Instructions ?Recorded ?Confirmed ?Type No Known Home Medications 09/06/2410/24 History New Prescriptions to Start Prescriptions: Allergies Allergy/AdvReac Type Severity Reaction Status Date / Time No Known Allergies Allergy Verified 05/01/23 19:39 Exam Data for Last 24 hours Vital signs and Labs for Last 24 Hours: Temp Pulse Resp BP Pulse Ox O2 Del Method 98.6 F 86 15 132/73 97 Room Air 09/06/24 04:00 09/06/24 04:00 09/06/24 04:00 09/06/24 04:00 09/06/24 04:00 09/06/24 06:39 Laboratory Results - last 24 hr 09/05/24 21:30: WBC 9.0, RBC 4.95, Hgb 14.4, Hct 44.7, MCV 90.3, MCH 29.1, MCHC 32.2, RDW 13.2, Plt Count 334, MPV 11.7 H, Neut % (Auto) 78.3, Lymph % (Auto) 14.5, [place] % (Auto) 6.6, Eos % (Auto) 0.2, Baso % (Auto) 0.1, Neut # (Auto) 7.0, Lymph # (Auto) 1.3, [place] # (Auto) 0.6, Eos # (Auto) 0.0, Baso # (Auto) 0.0, Sodium 138, Potassium 4.0, Chloride 98, Carbon Dioxide 27, Anion Gap 17.0 H, BUN 28 H, Creatinine 0.80, Estimated Creat Clear 51, Estimated GFR 70, Est GFR ( Amer) 84, Glucose 95, Calcium 8.6, Magnesium 2.0, Total Bilirubin 1.6 H , AST 30, ALT 14, Alkaline Phosphatase 74, Troponin I < 0.01, NT-Pro-B Natriuret Pep 1170 H, Total Protein 7.5, Albumin 3.7, Globulin 3.8 H, Albumin/Globulin Ratio 1.0 L, TSH 0.80, Free T4 1.73, HCV Ab RICHA w/Rflx PCR Qn Negative, HIV Ag/Ab Combo Qual Negative 09/05/24 21:47: VBG pH 7.39, VBG pCO2 40.5, VBG pO2 44.0 H, VBG HCO3 23.7, VBG Total CO2 24.9, VBG O2 Saturation 80.1 H, VBG Base Excess -1.4, VBG Lactic Acid 2.4 H 09/05/24 23:28: Urine Color Yellow, Urine Appearance Clear, Urine pH 6.0, Ur Specific [place] 1.020, Urine Protein Trace, Urine Glucose (UA) Negative, Urine Ketones 1+, Urine Blood Negative, Urine Nitrate Positive A, Urine Bilirubin 2+ A , Urine Urobilinogen 2.0, Ur Leukocyte Esterase Trace, Urine WBC 10-20, Ur Squamous Epith Cells 5-10, Urine Bacteria 2+ 09/06/24 01:53: Lactate 1.6, Troponin I < 0.01 09/06/24 04:46: Troponin I < 0.01 I & O for Last 24 hours: Intake & Output 09/03/24 09/04/24 09/05/24 09/06/24 11:59 11:59 11:59 11:59 Weight 133 lb 6 oz Constitutional Constitutional: no acute distress and cooperative Comments: Awaken for assessment *Routine HEENT Exam Head: Present normocephalic; Absent atraumatic (Ecchymosis noted on the forehead.) Eye: Present PERRL; Absent conjunctival icterus, scleral injection or conjunctivae pink ENT: Present mucous membranes moist, oropharynx clear and nares patent *Routine Neck Exam Neck: Present full ROM; Absent carotid bruit, lymphadenopathy or thyromegaly Routine Chest/Breast/Axilla Exam Chest wall: Absent tenderness *Routine Respiratory Exam Respiratory: Present diminished air movement (Decreased breath sounds in left mid and lower lobe) and normal respiratory effort *Routine Cardiovascular Exam Cardiovascular: Present irregular rhythm (Heart rate range 70-90.) *Routine Abdominal Exam Abdominal: Present soft and normoactive bowel sounds; Absent tenderness, distended or guarding *Routine Rectal Exam Rectal:: deferred *Routine Genitalia Exam Genitalia:: deferred *Routine Extremities Exam Extremities: Present full ROM (Moves all extremities quite well.) and pulses intact; Absent edema or calf tenderness Comments: Left hand with dorsal ecchymosis *Routine Neurological Exam Neurological: Present alert, altered mental status and moving all extremities; Absent oriented X3 Comments: Spoke of her grandparents owning a farm as if they were still living. Assessment and Plan *Assessment and plan (1) Acute UTI: Status: Acute Category: Medical Code(s): N39.0 - Urinary tract infection, site not specified (2) Fecal impaction in rectum: Status: Acute Category: Medical Code(s): K56.41 - Fecal impaction (3) Pneumonia: Status: Acute Category: Medical Code(s): J18.9 - Pneumonia, unspecified organism (4) Fall: Status: Acute Qualifiers: Encounter type: initial encounter Qualified Code(s): W19.XXXA - Unspecified fall, initial encounter Category: Medical Code(s): W19.XXXA - Unspecified fall, initial encounter (5) Traumatic ecchymosis of left hand: Status: Acute Qualifiers: Encounter type: initial encounter Qualified Code(s): S60.222A - Contusion of left hand, initial encounter Category: Medical Code(s): S60.222A - Contusion of left hand, initial encounter (6) Traumatic ecchymosis of left knee: Status: Acute Qualifiers: Encounter type: initial encounter Qualified Code(s): S80.02XA - Contusion of left knee, initial encounter Category: Medical Code(s): S80.02XA - Contusion of left knee, initial encounter (7) Atrial fibrillation with normal ventricular rate: Status: Acute Category: Medical Code(s): I48.91 - Unspecified atrial fibrillation Plan Enema and mag citrate not given and will give this a.m. Will give MiraLAX instead along with a normal retention enema followed by fleets enema. If possible to remove fecal impaction. With new onset of atrial fibs will consult with colic cardiology. Will place on advertising material distributor. Also care management consult.
--- NOTE | 2024-09-06 08:43 | CA_ITS ---
APPROVED REPORT EXAM: Comprehensive 2D, Doppler, and color-flow Echocardiogram Cannon Pinion Adjuster: Renetta Heck, RT(R) Ht: 5 ft 4 in Wt: 133lbs BSA: 1.64 BP: 132/73 mmHg Indications: pneumonia, AFIB, altered mental status 2D Dimensions LVEF (Warren's) 34.80 % F: 54 - 74 LV Volume 73.30 mL F: 46 - 106 LV Volume Index 44.4 mL/m2 F: 29 - 61 LA Volume 48.30 mL LA Volume Index 29.27 mL/m2 (M/F) 16-34 EF AP4 32.10 % EF AP2 38.8 % EF BP 34.8 % GL Strain -9.5 % M-Mode Dimensions RVDd 2.12 cm (0.9-2.6) LA Diam 4.72 cm (1.9-4.0) LVDd 4.53 cm (3.5-5.7) LVDs 3.64 cm (3.5-5.7) IVSd 0.96 cm (0.6-1.1) PWd 0.92 cm (0.6-1.1) EF (Teich) 40.50% FS 19.60% EDV (Teich) 93.90 mL ESV (Teich) 55.90 mL Tricuspid Valve TR P. Velocity 250.00 cm/s RAP Estimate 10.00 mmHg RVSP 34.90 mmHg Left Ventricle The left ventricle is normal size. Left ventricular systolic function is mild to moderately decreased. There is increased LV wall thickness. Proximal septal thickening is present. There is mild to moderate global hypokinesis present. There is severe hypokinesis of the septal, anteroseptal, inferoseptal LV de [place] rosa. Diastolic function is indeterminate. LVEF is 40%. Right Ventricle The right ventricle is normal size. The right ventricular systolic function is normal. Atria Left atrium is mildly dilated. Right atrium is mildly dilated. There is no Doppler evidence of interatrial shunt. Aortic Valve The aortic valve is mildly thickened. There is no aortic valvular stenosis. Trace aortic regurgitation. Mitral Valve The mitral valve is mildly thickened. No evidence of mitral valve stenosis. Mild mitral regurgitation. Tricuspid Valve Tricuspid valve is grossly normal in structure and function. Mild tricuspid regurgitation. RVSP is 25-30 mmHg. Pulmonic Valve The pulmonary valve is normal in structure. Trace pulmonic regurgitation. Great Vessels The aortic root is normal in size. IVC is normal in size and collapses >50% with inspiration. Pericardium There is no pericardial effusion. Other Information Study Quality: Fair Conclusion Mild to moderate reduction in LV systolic function (LVEF 40%). Regional wall motion abnormalities with presence of severe hypokinesis of the septal, anteroseptal, inferoseptal LV de la rosa. Mild biatrial dilation. Mild MR, mild TX. Electronically signed by : Shira Freitas MD 09/06/2024 23:49:10
[2024-09-06] MEDS: MINERAL OIL ENEMA 133ML 133 ML RC (09:17)
[2024-09-06] MEDS: POLYETHYLENE GLYCOL 3350 17 GM PACKET PO (09:17)
[2024-09-06] MEDS: SENNOSIDES 8.6MG/DOCUSATE 50MG TABLET 1 TAB PO (09:21)
--- NOTE | 2024-09-06 09:54 | [facility].OTEV ---
OT Inpatient Evaluation Rehab OT IP Evaluation Start: 09/06/24 08:10 Freq: ONCE Status: Active Protocol: Document 09/06/24 09:42 FLASH (Rec: 09/06/24 09:54 FLASH [id number]) Rehab OT IP Assessment Subjective History Per HPI Narrative: Abby Ace is a 79-year-old female with a past medical history of abdominal hernia who presents to the emergency department due to concern for family for her mental status and decreased energy and appetite. They state that over the last week, she has been more fatigued than normal and just wants to sleep and rest all the time. They state that she has been confused for some time and has been forgetting where she put things at home. They noted that she has a big bruise on her forehead but patient does not remember what caused this and family did not witness anything. Patient has no complaints at this time. She is alert and oriented to self and location but does not know the year. She does not know who the president is. Patient denies any abdominal pain, dysuria, chest pain, shortness of breath, headache or neck pain. Family notes that she does not go to her primary care doctor and they cannot convince her to go. They state that over the last week, she has had decreased oral intake and only eats a small amount of food, which is abnormal for her. Supposedly the fall that resulted in the forehead bruise happened approximately 2 weeks ago. Family is concerned patient may have Alzheimer's. Description of Symptoms (Recalled from ER Triage Doc. by RN): Pt presents to the ED accompanied by her daughter with c/o decreased oral intake, and lethargy. Pt's daughter reports that the pt has been confused X 2 years and family believes the pt has alzchiemers but the pt has not been to a doctor for approx 2 years since last fall. Pt's daughter rpeorts that the pt lives at home with her and is at home by herself while her works. Pt's daughter reports that the pt had an unwittnessed fall approx. 2 weeks ago. Pt has large bruise to forhead, lower extremities and arms. Pt denies and pain or symptoms. Subjective I did not fall. Pt supine in bed when therapy arrived. Pt orient x3. pt agreed to initial OT eval this morning. Pt reports they live with and family. Pt reports they live in mx story home with mx steps inside and to enter home. pt reports they have handrails. pt reports they use a cane for functional mobility. pt reports they are ind in ADLs and IADLs. pt reports they have grab bars. pt reports is there 22/09. Pt agreed to complete functional mobility task. Pt Min A to go from supine to EOB. Pt then complete STS with Min A. Pt then completed functional mobility task of aprox 30 ft with CGA with cane. Pt demo unsteady balance at times. Pt sat back in bed. Pt demo good activity tolerance. pt went from EOB to supine with Min A. Pt left supine in bed with call light and all other needs within reach. Objective Patient Orientation Person,Place,Birthday Right Upper WFL Extremity Gross ROM Left Upper Extremity WFL Gross ROM Bed Mobility bed mobility-scooting,bed mobility - supine/sit Assist Level Minimal x 1 (25% assist) Transfer Training Sit/Stand Transfer Assist Level Minimal x 1 (25% assist) Chair Transfer Minimal x 1 (25% assist) Ability Chair Transfer Sit to/from Ambulatory Technique Chair Transfer Straight Cane Assistive Devices Decrease in Yes Endurance Rehab OT IP prob,goals,plan Problems Date of Evaluation: 09/06/24 OT IP Problems Bed Mobility,Transfers,Balance,Self care,Safety Rehab Potential Rehab Potential Good Equipment Needs Assistive Devices Straight Cane,Rolling / Wheeled Walker Plan OT intervention Plan Bed Mobility,Transfers,Balance,Self care,Safety, Therapeutic Exercise OT Plan Frequency Daily Duration LOS Discharge Goals Bed Mobility Ability Standby Assistance Sit to Stand Chair Contact Guard/Hand Hold Transfer Ability Chair Transfer Supervision/Stand by Ability Chair Transfer Sit to/from Ambulatory Technique Chair Transfer Straight Cane,Rolling Walker Assistive Devices Feeding Ability Assist with Tray Set Up Commode/Toilet Toilet Rails,Grab Bars Transfer Assistive Devices Decrease in No Endurance Discharge Plan OT Discharge Plan At this time, pt would benefit from skilled acute OT to address functional limitations in occupational performance. If pt has 22/09 care and assistance, pt can go home with OT services to address functional limitations in occupational performance. Eval Complexity Eval Charge Codes 38187 - Moderate Complexity PHYSICIAN CERTIFICATION: I certify the specified therapy services for Abby Rosette Fooks are required, authorized, and reviewed every 30 days.
--- NOTE | 2024-09-06 10:38 | P.CONCA_ITS ---
History of Present Illness History of Present Illness Consult date: 09/06/24 Requesting physician: Brice Wilhelm Chief complaint: AMS History of present illness: 79-year-old white female without any home medications who has not not seen PCP as an outpatient presented with the assistance of her family for 2 weeks of worsening altered mental status, decreased appetite, decreased energy. Patient apparently had a fall with significant bruising to her forehead about 2 weeks ago and does not recall the incident. On my evaluation patient is alert and very pleasant but altered and a very poor historian. No family is bedside, no answer at number on file. Majority of history is gathered from chart. In the emergency room patient was diagnosed with UTI, possible pneumonia, fecal impaction. CT head showed white matter changes consistent with either prior infection, inflammation, trauma. EKG revealed new atrial fibrillation which is why we are consulted. Review of EKG by me shows A-fib heart rate 88 bpm and left bundle branch block. Patient denies chest pain shortness of breath palpitations and states she has no complaints at all at this time. [facility] Disclaimer: The information contained in this section may have been updated after the patient was seen, as this information can be updated by other users. Social History Smoking Status: Former smoker alcohol intake: never current occupational status: retired Travel in the last 8 weeks?: None Have you lived/traveled outside US in past 30 days?: No Contact w/someone who lives/traveled outside US past 30 days?: No Exposure to someone with infectious disease in past 14 days?: No Do you have a fever (greater than 100.4 F or 38 C)?: No Have you tested positive for COVID-19?: No Exposed to someone with COVID-19 in past 14 days?: No Do you have a sore throat?: No Do you have a cough?: No Do you have any weakness?: No Do you have any diarrhea?: No Are you experiencing any unusual bleeding?: No Do you have any muscle aches/pain?: No Do you have any abdominal pain?: No Are you experiencing loss of taste or smell?: No Review of Systems Review of Systems Review of systems:: unable to obtain Review of systems (narrative): pt mati all symptoms but is altered *Neurologic Neurologic: Denies abnormal speech, Reports confusion (Family reports altered mental status) and Reports memory loss Psychiatric Psychiatric: Reports confusion (Family reports altered mental status) and Reports memory loss Exam Data for Last 24 hours Vital signs and Labs for Last 24 Hours: Temp Pulse Resp BP Pulse Ox O2 Del Method 97.8 F 88 16 107/54 L 98 Room Air 09/06/24 08:00 09/06/24 08:00 09/06/24 08:00 09/06/24 08:00 09/06/24 08:00 09/06/24 08:19 Laboratory Results - last 24 hr 09/05/24 21:30: WBC 9.0, RBC 4.95, Hgb 14.4, Hct 44.7, MCV 90.3, MCH 29.1, MCHC 32.2, RDW 13.2, Plt Count 334, MPV 11.7 H, Neut % (Auto) 78.3, Lymph % (Auto) 14.5, [place] % (Auto) 6.6, Eos % (Auto) 0.2, Baso % (Auto) 0.1, Neut # (Auto) 7.0, Lymph # (Auto) 1.3, [place] # (Auto) 0.6, Eos # (Auto) 0.0, Baso # (Auto) 0.0, Sodium 138, Potassium 4.0, Chloride 98, Carbon Dioxide 27, Anion Gap 17.0 H, BUN 28 H, Creatinine 0.80, Estimated Creat Clear 51, Estimated GFR 70, Est GFR ( Amer) 84, Glucose 95, Calcium 8.6, Magnesium 2.0, Total Bilirubin 1.6 H , AST 30, ALT 14, Alkaline Phosphatase 74, Troponin I < 0.01, NT-Pro-B Natriuret Pep 1170 H, Total Protein 7.5, Albumin 3.7, Globulin 3.8 H, Albumin/Globulin Ratio 1.0 L, TSH 0.80, Free T4 1.73, HCV Ab RICHA w/Rflx PCR Qn Negative, HIV Ag/Ab Combo Qual Negative 09/05/24 21:47: VBG pH 7.39, VBG pCO2 40.5, VBG pO2 44.0 H, VBG HCO3 23.7, VBG Total CO2 24.9, VBG O2 Saturation 80.1 H, VBG Base Excess -1.4, VBG Lactic Acid 2.4 H 09/05/24 23:28: Urine Color Yellow, Urine Appearance Clear, Urine pH 6.0, Ur Specific [place] 1.020, Urine Protein Trace, Urine Glucose (UA) Negative, Urine Ketones 1+, Urine Blood Negative, Urine Nitrate Positive A, Urine Bilirubin 2+ A , Urine Urobilinogen 2.0, Ur Leukocyte Esterase Trace, Urine WBC 10-20, Ur Squamous Epith Cells 5-10, Urine Bacteria 2+ 09/06/24 01:53: Lactate 1.6, Troponin I < 0.01 09/06/24 04:46: Troponin I < 0.01 I & O for Last 24 hours: Intake & Output 09/03/24 09/04/24 09/05/24 09/06/24 23:59 23:59 23:59 23:59 Weight 150 lb 133 lb 6 oz Constitutional Constitutional: no acute distress and cooperative Comments: large healing bruise over forehead, numerous bruises to arms *Routine HEENT Exam Eye: Present PERRL *Routine Respiratory Exam Respiratory: Present CTA bilaterally; Absent accessory muscle use, wheezes or c rackles *Routine Cardiovascular Exam Cardiovascular: Present RRR, Normal S1 and Normal S2; Absent murmur, gallop or rubs *Routine Abdominal Exam Abdominal: Present soft; Absent tenderness *Routine Extremities Exam Extremities: Present pulses intact; Absent cyanosis or edema *Routine Skin Exam Skin: Present intact; Absent erythema or wounds *Routine Neurological Exam Neurological: Present alert Comments: very pleasant but altered Routine Psychiatric Exam Psychiatric: Present cooperative Meds Home Medications and Allergies Home Medications ?Medication ?Instructions ?Recorded ?Confirmed ?Type No Known Home Medications 09/06/24 0710/24 History New Prescriptions to Start Prescriptions: Allergies Allergy/AdvReac Type Severity Reaction Status Date / Time No Known Allergies Allergy Verified 05/01/23 19:39 Assessment and Plan *Assessment and plan (1) Atrial fibrillation with normal ventricular rate: Status: Acute Category: Medical Code(s): I48.91 - Unspecified atrial fibrillation (2) Acute UTI: Status: Acute Category: Medical Code(s): N39.0 - Urinary tract infection, site not specified (3) Fecal impaction in rectum: Status: Acute Category: Medical Code(s): K56.41 - Fecal impaction (4) Pneumonia: Status: Acute Category: Medical Code(s): J18.9 - Pneumonia, unspecified organism (5) Fall: Status: Acute Qualifiers: Encounter type: initial encounter Qualified Code(s): W19.XXXA - Unspecified fall, initial encounter Category: Medical Code(s): W19.XXXA - Unspecified fall, initial encounter (6) Altered mental status: Status: Acute Category: Medical Code(s): R41.82 - Altered mental status, unspecified Plan Atrial fibrillation with controlled ventricular response - New diagnosis this admission - Patient is asymptomatic and rate control - [id number] = at least 3, however with frequent falls and recent head trauma we will hold on OAC as risks outweigh benefits - Check 2D echo Left bundle branch block - New diagnosis this admission - Patient denies anginal symptoms but has not seen a doctor in years reportedly and is currently altered so history is unclear - Cannot rule out underlying ischemia - check 2D echo Altered mental status - Possibly baseline dementia with concomitant delirium from UTI, fecal impaction concomitant -She appears to have had undiagnosed A-fib which increases risk for CVA-check MRI brain UTI Fecal Impaction Questionable PNA - plans per Hospitalist
--- NOTE | 2024-09-06 10:47 | MR_ITS ---
FINAL REPORT CLINICAL HISTORY: AMS, head trauma, possible CVA COMPARISON: None FINDINGS: Multiplanar MR imaging of the brain was performed without and with contrast. There is degradation of overall image quality secondary to motion artifact. There is moderate abnormal signal present predominantly in the deep white matter bilaterally, that in this age group likely represents chronic changes of ischemic microvascular disease. There is no evidence of intracranial hemorrhage or mass. No abnormal extra-axial fluid collection is seen. The ventricular size is within normal limits. There is no evidence of shift of the midline structures. The posterior fossa and brainstem have an unremarkable appearance. No area of abnormal restricted diffusion is identified. No abnormal contrast enhancement is seen. Normal major vessel vascular flow voids are noted. There is a dominant subcutaneous focus near the vertex that measures 2.8 x 1.1 cm in size, that likely represents a sebaceous cyst. IMPRESSION: Exam is overall limited by motion artifact. No acute intracranial abnormality identified. Moderate changes of chronic ischemic microvascular disease. Dominant subcutaneous focus near the vertex 2.8 x 1.8 cm in size, that likely represents a sebaceous cyst. Reviewed, Interpreted and Dictated by Anshul Hay MD Transcribed by Nati Boyce Authenticated and [facility]
--- NOTE | 2024-09-06 11:11 | HMH.PTEV ---
Physical Therapy Evaluation Rehab PT IP Evaluation Start: 09/06/24 08:10 Freq: ONCE Status: Active Protocol: Document 09/06/24 10:48 OLIVIA (Rec: 09/06/24 11:11 OLIVIA [id number]) Subjective/History History History Per H&P: Abby Ace is a 79-year-old female with a past medical history of abdominal hernia who presents to the emergency department due to concern for family for her mental status and decreased energy and appetite . They state that over the last week, she has been more fatigued than normal and just wants to sleep and rest all the time. They state that she has been confused for some time and has been forgetting where she put things at home. They noted that she has a big bruise on her forehead but patient does not remember what caused this and family did not witness anything. Patient has no complaints at this time. She is alert and oriented to self and location but does not know the year. She does not know who the president is. Patient denies any abdominal pain, dysuria, chest pain, shortness of breath, headache or neck pain. Family notes that she does not go to her primary care doctor and they cannot convince her to go. They state that over the last week, she has had decreased oral intake and only eats a small amount of food, which is abnormal for her. Supposedly the fall that resulted in the forehead bruise happened approximately 2 weeks ago. Family is concerned patient may have Alzheimer's. The above as per ER documentation. . Ms. Ace is a 79-year-old female unknown to [facility]. She takes no medicines. Today with interview and assessment she denies any problems. She states she has just not felt well recently. Family is not present for this assessment and all history is obtained from her. See above information obtained from family in the emergency room. She states she is healthy and has no pain, no nausea or vomiting. She does not not feel like eating breakfast this morning. She does not recall any recent falls. With evaluation in the emergency room she had multiple scans and was felt to have a urinary tract infection and possibly pneumonia.She was found to have a fecal impaction. White blood cell count was 9000 with a hemoglobin of 14.4 and hematocrit of 44.7. Bilirubin was elevated at 1.6. TSH was found to be 0.8. She was given a dose of Rocephin 1 g IV. The mag citrate was not given and the fleets enema was not given. She was given a liter of IV fluids. CTA of the chest showed no pulmonary embolism, ground glass opacity in the right upper lobe and superior segment of the right lower lobe with associated mild reticular interstitial prominence likely representing acute inflammation or pneumonitis. CT of the abdomen showed a large left mid abdominal wall hernia containing large and small bowel without obstruction, significant fecal content within the rectum with a rectal diameter measuring 10 cm, bilateral adrenal nodules. CT of the head showed multiple subcortical and deep hypoattenuating white matter foci present likely related to small vessel changes and also can be seen with prior infectious inflammatory insult or prior traumatic event. Nothing to suggest acute intracranial hemorrhage. Cervical spine CT showed no evidence of acute abnormality. EKG shows atrial Fib Subjective Subjective I get along well Pt reports she lives with her in a 2 story home . Pt reports she is IND with SPC. Pt reports her s able to assist as needed. Repeatedly denied any falls in past month despite hx of fall. New diagnosis of No cancer in past 12 months? [facility] How much help from another person do you currently need... Turning from your None back to your side while in a flat bed without using bedrails? Moving from lying on None back to sitting on the side of a flat bed without using bedrails? Moving to and from a None bed to a chair ( including a wheelchair)? Standing up from a A little chair using your arms? (e.g., wheelchair, bedside chair) Walking in hospital A little room? Climbing 3-5 steps A little with a railing? Mobility Score 21 Mobility Level [facility] Mobility 6 Walk 10 steps or more Mobility Calculator Rehab PT IP Eval Objective Appearance Patient Behavior Appropriate,Cooperative Patient Orientation Person,Place Difficulty following none instructions Speech Pattern Clear Ambulation Patient Able to Yes Ambulate Ambulation Observation IP General Gait Narrow Based Gait Pattern Observation Ambulation Distance 55 (feet) Ambulation Assistive Straight Cane Device Ambulation Ability Minimal x 1 (25% assist) Balance Ability to Arise Able, uses arms to help Sitting Balance Steady, safe Standing Balance Steady, wide stance Dynamic Sitting Good Balance Ability Dynamic Standing Fair Balance Ability Transfers Bed Transfer Ability Supervision/Stand by Sit to Stand Bed Minimal x 1 (25% assist) Transfer Ability Rehab PT IP prob,goals,plan Problems Date of Evaluation: 09/06/24 PT IP Problems Transfers,Gait,Balance,Self care,Safety Rehab Potential Rehab Potential Good Plan PT Intervention Plan Transfers,Gait,Balance,Self care,Safety,Therapeutic Exercise Other Intervention 1-2 times Plan PT Plan Frequency Daily Duration LOS Discharge Goals Bed Transfer Ability Supervision/Stand by Sit to Stand Chair Supervision/Stand by Transfer Ability Ambulation Assistive Rolling Walker Device Discharge Plan PT Discharge Plan Initial physical therapy evaluation performed. Patient presents below baseline at this time in functional mobility, transfers, gait, and strength. Pt would benefit from skilled PT while at [facility] to prevent further functional decline and maximize safety with mobility. Pt most appropriate to d/c home with 22/09 assistance/ supervision when deemed medically necessary d/t current level of mobility, home set-up, and family support. PT recommending home health PT services to address deficits. Eval Complexity Eval Charge Codes 14768 - Moderate Complexity PHYSICIAN CERTIFICATION: I certify the specified therapy services for Abby Ace are required, authorized, and reviewed every 30 days.
--- NOTE | 2024-09-06 11:56 | PC.NURSE ---
Patient refused nebulizer to induce sputum.
[2024-09-06] MEDS: GADOTERIDOL INJ 20ML SYRINGE 12 ML IV (12:40)
[2024-09-06] MEDS: SODIUM CHLORIDE 0.9% 10ML SYR (RAD ONLY) 10 ML IV (12:40)
--- NOTE | 2024-09-06 20:15 | PC.NURSE ---
PATIENT PULLED IV OUT, NEW IV STARTED IN RIGHT AC. MINERAL OIL ENEMA, MIRALAX, DOCUSATE GIVEN TO PROMOTE BM. PATIENT AMBULATED WITH PT IN HALLWAY TODAY. REMAINS ALERT & ORIENTED TO SELF AND INTERMITTENTLY TO SITUATION.
[2024-09-07] VITALS: PULSE 80
[2024-09-07 04:00] VITALS: BP 115/65; PULSE 80; PULSE 88; RESP 16; TEMP 36.5; O2SAT 97; BMI 22.7
--- NOTE | 2024-09-07 04:35 | PC.NURSE ---
Pt. was admitted yesterday for UTI, Fecal inpaction, Pneumonia, and increased confusion. Pt. is alert , pleasent, knows her name, birthday, age, and intermittently situation. Pt. is very talkative. Pt. on room air. Pt. gets up to bathroom with one assist. Pt. had bad fall a couple weeks ago and has bruising to her face., some bruises to arms and legs. Pt. sleeping well this shift. Personal items and call collins in reach. bed alarm on and safety measures in place.
[2024-09-07 08:00] VITALS: BP 103/54; PULSE 80; PULSE 86; RESP 16; TEMP 36.6; O2SAT 96; O2SAT 97
--- NOTE | 2024-09-07 08:14 | EXP.ACUTE.PN ---
Subjective *Date: 09/07/24 *Time: 08:14 Interval history: Patient states she is tired this morning, however she did sleep well last night. She denies any pain or shortness of breath. She denies any cough. She has not eaten breakfast. She states she is not hungry. Medical Exam Vital signs and Labs for Last 24 Hours: Vital Signs Temp Pulse Pulse Resp BP Pulse Ox O2 Del Method 09/07/24 07:00 Room Air 09/07/24 05:00 Room Air 09/07/24 04:00 97.7 F 88 16 115/65 97 Room Air 09/07/24 04:00 80 09/07/24 03:00 Room Air 09/07/24 01:00 Room Air 09/07/24 00:00 80 09/06/24 23:00 Room Air 09/06/24 21:00 Room Air 09/06/24 20:00 99 Room Air 09/06/24 20:00 80 09/06/24 20:00 97.7 F 90 16 118/68 99 Room Air 09/06/24 19:00 Room Air 09/06/24 17:00 Room Air 09/06/24 16:00 97.7 F 60 16 131/70 98 Room Air 09/06/24 16:00 60 09/06/24 15:00 Room Air 09/06/24 13:00 Room Air 09/06/24 12:00 100 H 09/06/24 11:00 Room Air 09/06/24 08:19 Room Air Intake and Output 09/06/24 09/07/24 09/07/24 19:59 03:59 11:59 Intake Total 100 / 100 Output Total 0 / 400 400 / 400 Balance 100 / -300 -400 / -300 Intake: Intake, Total IV Amount 100 / 100 Ceftriaxone 1 gm 1 gm In 0.9 % 100 / 100 Sodium Chloride 50 ml @ 100 mls /hr IV Q24H [facility] Rx#:[id number] Output: Output, Urine Amount 0 / 400 400 / 400 Other: Number of Unmeasured Voids 1 1 Weight 133 lb 5.651 oz Patient Weight 09/07/24 11:59 Weight 133 lb 5.651 oz Laboratory Results - last 24 hr 09/05/24 23:28: Urine Color Yellow, Urine Appearance Clear, Urine pH 6.0, Ur Specific [place] 1.020, Urine Protein Trace, Urine Glucose (UA) Negative, Urine Ketones 1+, Urine Blood Negative, Urine Nitrate Positive A, Urine Bilirubin 2+ A, Urine Urobilinogen 2.0, Ur Leukocyte Esterase Trace, Urine WBC 10-20, Ur Squamous Epith Cells 5-10, Urine Bacteria 2+ I & O for Labs for Last 24 Hours: Intake & Output 09/04/24 09/05/24 09/06/24 09/07/24 11:59 11:59 11:59 11:59 Intake Total 100 / 100 Output Total 200 / 200 400 / 400 Balance -200 / -200 -300 / -300 Weight 133 lb 6 oz 133 lb 5.651 oz Microbiology Reports for the Last 24 Hours: Microbiology 09/05/24 23:28 Urine,Clean Catch Urine Culture - Preliminary Gram Negative Rods Constitutional: Present no acute distress Respiratory: Present CTA bilaterally Cardiac: Present Other (Irregular Rhythm) GI: Present soft and normal bowel sounds; Absent distention or tenderness Extremities: Absent edema Skin: Present intact Neuro: Present alert and awake Assessment and Plan *Assessment and plan (1) Acute UTI: Status: Acute Category: Medical Code(s): N39.0 - Urinary tract infection, site not specified (2) Fecal impaction in rectum: Status: Acute Category: Medical Code(s): K56.41 - Fecal impaction (3) Pneumonia: Status: Acute Category: Medical Code(s): J18.9 - Pneumonia, unspecified organism (4) Fall: Status: Acute Qualifiers: Encounter type: initial encounter Qualified Code(s): W19.XXXA - Unspecified fall, initial encounter Category: Medical Code(s): W19.XXXA - Unspecified fall, initial encounter (5) Traumatic ecchymosis of left hand: Status: Acute Qualifiers: Encounter type: initial encounter Qualified Code(s): S60.222A - Contusion of left hand, initial encounter Category: Medical Code(s): S60.222A - Contusion of left hand, initial encounter (6) Traumatic ecchymosis of left knee: Status: Acute Qualifiers: Encounter type: initial encounter Qualified Code(s): S80.02XA - Contusion of left knee, initial encounter Category: Medical Code(s): S80.02XA - Contusion of left knee, initial encounter (7) Atrial fibrillation with normal ventricular rate: Status: Acute Category: Medical Code(s): I48.91 - Unspecified atrial fibrillation Plan Echo - Mild to moderate reduction in LV systolic function (LVEF 40%). Regional wall motion abnormalities with presence of severe hypokinesis of the septal, anteroseptal, inferoseptal LV de la rosa. Mild biatrial dilation. Mild MR, mild TR. Cardiology to follow. Brain MRI shows nothing acute. Urine culture is still pending. Nursing states still no BM. Will discuss with Dr. Henderson.
--- NOTE | 2024-09-07 08:50 | CARE MANAGER ---
Addendum entered by Ida Tran RN 09/07/24 10:47: Spoke with Ania, patient's daughter this morning, who states that the plan is for patient to return home. Unsure at this time about HH services. We will continue to follow for all discharge planning needs. Original Note: YESSENIA spoke with patient's daughter on 09/06 to discuss discharge planning needs. She wanted to talk with patient's spouse before deciding on a plan. CM will discuss plan further with patient and family today.
[2024-09-07] MEDS: POLYETHYLENE GLYCOL 3350 17 GM PACKET PO (09:50)
[2024-09-07] MEDS: SENNOSIDES 8.6MG/DOCUSATE 50MG TABLET 1 TAB PO (09:50)
[2024-09-07 12:00] VITALS: PULSE 100
[2024-09-07] MEDS: SODIUM PHOS/BIPHOSPHATE FLEET 133ML ENEMA 133 ML RC (12:09)
[2024-09-07] MEDS: LEVOFLOXACIN/D5W 500 MG/100 ML PIGGYBACK 100 MG IV (12:09)
--- NOTE | 2024-09-07 12:15 | P.PN_ITS ---
Subjective Subjective Date: 09/07/24 Time: 09:30 Interval history: No events overnight. ECHO shows EF 40% with WMA Pt denies cp, soa, palps, le edema Exam Data for Last 24 hours Vital signs and Labs for Last 24 Hours: Temp Pulse Resp BP Pulse Ox O2 Del Method 98 F 86 16 103/54 L 97 Room Air 09/07/24 08:00 09/07/24 08:00 09/07/24 08:00 09/07/24 08:00 09/07/24 08:00 09/07/24 11:00 Laboratory Results - last 24 hr 09/05/24 23:28: Urine Color Yellow, Urine Appearance Clear, Urine pH 6.0, Ur Specific [place] 1.020, Urine Protein Trace, Urine Glucose (UA) Negative, Urine Ketones 1+, Urine Blood Negative, Urine Nitrate Positive A, Urine Bilirubin 2+ A , Urine Urobilinogen 2.0, Ur Leukocyte Esterase Trace, Urine WBC 10-20, Ur Squamous Epith Cells 5-10, Urine Bacteria 2+ I & O for Last 24 hours: Intake & Output 09/04/24 09/05/24 09/06/24 09/07/24 23:59 23:59 23:59 23:59 Intake Total 640 / 640 Output Total 200 / 200 500 / 500 Balance -200 / -100 140 / 140 Weight 150 lb 133 lb 6 oz 133 lb 5.651 oz Microbiology Reports for the Last 24 Hours: Microbiology 09/05/24 23:28 Urine,Clean Catch Urine Culture - Preliminary Gram Negative Rods Constitutional Constitutional: no acute distress and cooperative *Routine HEENT Exam Eye: Present PERRL *Routine Respiratory Exam Respiratory: Present CTA bilaterally; Absent accessory muscle use, wheezes or crackles *Routine Cardiovascular Exam Cardiovascular: Present RRR, Normal S1 and Normal S2; Absent murmur, gallop or rubs *Routine Abdominal Exam Abdominal: Present soft; Absent tenderness *Routine Extremities Exam Extremities: Present pulses intact; Absent cyanosis or edema *Routine Skin Exam Skin: Present intact; Absent erythema or wounds *Routine Neurological Exam Neurological: Present alert and oriented X3 Routine Psychiatric Exam Psychiatric: Present cooperative Progress Note: A&P Assessment and plan (1) HFrEF (heart failure with reduced ejection fraction): Status: Acute (2) Atrial fibrillation with normal ventricular rate: Status: Acute (3) Acute UTI: Status: Acute (4) Fecal impaction in rectum: Status: Acute (5) Pneumonia: Status: Acute (6) Fall: Status: Acute (7) Traumatic ecchymosis of left hand: Status: Acute (8) Traumatic ecchymosis of left knee: Status: Acute Assessment and Plan Assessment and Plan for All Diagnoses:: Atrial fibrillation with controlled ventricular response - New diagnosis this admission - Patient is asymptomatic and rate control - [id number] = at least 3, however with frequent falls and recent head trauma we will hold on OAC as risks outweigh benefits - cont low dose BB - 09/07: place 2 week monitor at DC to assess AF burden and rate control. No DCCV at this time since we are avoiding OAC for the time being. Left bundle branch block - New diagnosis this admission - Patient denies anginal symptoms but has not seen a doctor in years reportedly and is currently altered so history is unclear - ECHO revealed EF 40% and WMA so I suspect underlying CAD - Add ASA, BB, Statin Chronic HFrEF - new dx this admission with ECHO showing EF 40% and regional wall motion a bnormalities with presence of severe hypokinesis of septal, anteroseptal, inferoseptal LV de la rosa - suspect ischemic etiology - euvolemic here - start ASA, BB, Statin. No GDMT for HF due to hypotension and UTI - OP ishcemic workup including stress imaging Altered mental status - Possibly baseline dementia with concomitant delirium from UTI, fecal impaction - She appears to have had undiagnosed A-fib which increases risk for CVA. MRI brain - no acute process. UTI Fecal Impaction Questionable PNA - plans per Hospitalist 09/07: CV stable. Several new CV dx this admission which have largely been found incidentally. No angina, rate controlled, euvolemic. Med changes as noted above. She needs OP f/u with us 1-2 weeks. No procedural intervention warranted this admission.
[2024-09-07] MEDS: ASPIRIN EC 81MG TABLET 81 MG PO (13:09)
[2024-09-07] MEDS: CEFTRIAXONE 1 GM 1 GM in 0.9 % SODIUM CHLORIDE 50 ML IV (14:59)
[2024-09-07 16:00] VITALS: BP 96/56; PULSE 64; PULSE 70; RESP 18; TEMP 36.4; O2SAT 99
--- NOTE | 2024-09-07 18:34 | PC.NURSE ---
patient started off the morning with increased confusion compared to day shift yesterday, cognition improved intermittently throughout the day. patient got up to the chair for lunch, patient will not use the call light to ask for assistance to the restroom etc., chair and bed alarm used at all times throughout the day. 24gauge IV started in the left forearm.
--- NOTE | 2024-09-07 18:53 | PC.NURSE ---
patient had large liquid stool following enema administration, followed by an additional large liquid stool with several large formed pieces of stool.
--- NOTE | 2024-09-07 18:57 | PC.NURSE ---
family was able to talk to case management today per their request
[2024-09-07 20:00] VITALS: BP 109/73; PULSE 80; PULSE 83; RESP 16; TEMP 36.7; O2SAT 98
[2024-09-07] MEDS: ATORVASTATIN 40MG TABLET 40 MG PO (21:23)
[2024-09-08] VITALS: BP 98/60; PULSE 80; PULSE 84; RESP 16; TEMP 36.8; O2SAT 100
[2024-09-08 04:00] VITALS: BP 92/54; PULSE 70; PULSE 81; RESP 16; TEMP 36.9; O2SAT 98; BMI 23.4
--- NOTE | 2024-09-08 04:55 | PC.NURSE ---
Ice water passed, trash and linens emptied, bedside table cleaned.
--- NOTE | 2024-09-08 07:55 | PC.NURSE ---
Pt. is alert to her name, birthday, age, and sometimes place. Pt. is pleasently confused. She is on room air. Pt. has slept most of this shift. Pt. up to bedside commode with assist x 1. Pt. had no c/o's or needs overnight. Personal items and call collins in reach. Bed alarm on. safety measures in place.
[2024-09-08 08:00] VITALS: BP 106/56; PULSE 66; PULSE 70; RESP 16; TEMP 36.6; O2SAT 93
--- NOTE | 2024-09-08 08:23 | EXP.ACUTE.PN ---
Subjective *Date: 09/08/24 *Time: 08:23 Interval history: Patient states she is feeling fine this am. She denies any pain. She slept well but does not feel like eating. Medical Exam Vital signs and Labs for Last 24 Hours: Vital Signs Temp Pulse Pulse Resp BP Pulse Ox O2 Del Method 09/08/24 07:00 Room Air 09/08/24 05:00 Room Air 09/08/24 04:00 70 09/08/24 04:00 98.5 F 81 16 92/54 L 98 Room Air 09/08/24 03:00 Room Air 09/08/24 01:00 Room Air 09/08/24 00:00 80 09/08/24 00:00 98.3 F 84 16 98/60 L 100 Room Air 09/07/24 23:00 Room Air 09/07/24 21:00 Room Air 09/07/24 20:00 16 98 Room Air 09/07/24 20:00 80 09/07/24 20:00 98.1 F 83 16 109/73 L 98 Room Air 09/07/24 18:20 Room Air 09/07/24 17:00 Room Air 09/07/24 16:00 97.6 F 64 18 96/56 L 99 Room Air 09/07/24 16:00 70 09/07/24 15:00 Room Air 09/07/24 13:00 Room Air 09/07/24 12:00 100 H 09/07/24 11:00 Room Air 09/07/24 08:31 Room Air Intake and Output 09/07/24 09/08/24 09/08/24 19:59 03:59 11:59 Intake Total 120 / 270 150 / 270 Output Total 0 / 0 0 / 0 Balance 120 / 270 150 / 270 0 / 270 Intake: Intake, Oral Amount 120 / 120 Intake, Total IV Amount 150 / 150 Ceftriaxone 1 gm 1 gm In 0.9 % 50 / 50 Sodium Chloride 50 ml @ 100 mls /hr IV Q24H TERESA Rx#:[id number] Levofloxacin/D5w 500 mg In 100 100 / 100 ml @ 100 mls/hr IV Q24H TERESA Rx# :[id number] Output: Output, Urine Amount 0 / 0 0 / 0 Other: Number of Voids 0 Number of Unmeasured Voids 2 1 Number of Bowel Movements 1 1 1 Weight 137 lb 3 oz Patient Weight 09/08/24 11:59 Weight 137 lb 3 oz I & O for Labs for Last 24 Hours: Intake & Output 09/05/24 09/06/24 09/07/24 09/08/24 11:59 11:59 11:59 11:59 Intake Total 640 / 640 270 / 270 Output Total 200 / 200 500 / 500 0 / 0 Balance -200 / -200 140 / 140 270 / 270 Weight 133 lb 6 oz 133 lb 5.651 oz 137 lb 3 oz Microbiology Reports for the Last 24 Hours: Microbiology 09/05/24 23:28 Urine,Clean Catch Urine Culture - Preliminary Gram Negative Rods Constitutional: Present no acute distress Respiratory: Present CTA bilaterally Cardiac: Present Other (Irregular Rhythm) GI: Present soft and normal bowel sounds; Absent distention or tenderness Extremities: Absent edema Skin: Present intact Neuro: Present alert and awake Assessment and Plan *Assessment and plan (1) Acute UTI: Status: Acute Category: Medical Code(s): N39.0 - Urinary tract infection, site not specified (2) Fecal impaction in rectum: Status: Acute Category: Medical Code(s): K56.41 - Fecal impaction (3) Pneumonia: Status: Acute Category: Medical Code(s): J18.9 - Pneumonia, unspecified organism (4) Fall: Status: Acute Qualifiers: Encounter type: initial encounter Qualified Code(s): W19.XXXA - Unspecified fall, initial encounter Category: Medical Code(s): W19.XXXA - Unspecified fall, initial encounter (5) Traumatic ecchymosis of left hand: Status: Acute Qualifiers: Encounter type: initial encounter Qualified Code(s): S60.222A - Contusion of left hand, initial encounter Category: Medical Code(s): S60.222A - Contusion of left hand, initial encounter (6) Traumatic ecchymosis of left knee: Status: Acute Qualifiers: Encounter type: initial encounter Qualified Code(s): S80.02XA - Contusion of left knee, initial encounter Category: Medical Code(s): S80.02XA - Contusion of left knee, initial encounter (7) Atrial fibrillation with normal ventricular rate: Status: Acute Category: Medical Code(s): I48.91 - Unspecified atrial fibrillation Plan Still awaiting final urine culture. Nursing states she did have a BM. Will discuss further care with Dr. Henderson.
[2024-09-08] MEDS: POLYETHYLENE GLYCOL 3350 17 GM PACKET PO (09:22)
[2024-09-08] MEDS: SENNOSIDES 8.6MG/DOCUSATE 50MG TABLET 1 TAB PO (09:22)
[2024-09-08] MEDS: ASPIRIN EC 81MG TABLET 81 MG PO (09:22)
--- NOTE | 2024-09-08 12:09 | SW/DCPLANNER ---
Addendum entered by Francine Wu 09/08/24 13:49: [facility] is not able to accept patient and i spoke with patient's daughter on the phone Ania and she stated that she didnt think her mother needs home health and that we did not have to send it to anyone else and i offered if they would like a sitters list and i printed it and took it to patient's other daughter. Onesimo Becerra Original Note: Spoke with patient's daughter Ania and she stated that we can fax her mother's information to [facility]. I sent patient's information and will update once i hear back from [facility]. Onesimo Becerra
--- NOTE | 2024-09-09 10:52 | SW/DCPLANNER ---
Spoke with patient's daughter on the phone. patient's daughter stated that her mom fell going into the house yesterday when she was discharged from the hospital. Patient's daughter stated that she is aware of her moms upcoming appointments. Patient's daughter stated that they were able to get her moms new medicine picked up from clinic pharmacy. Patient's daughter stated that she has no concerns or questions at this time. Onesimo Becerra
--- NOTE | 2024-09-09 22:07 | PC.NURSE ---
MD Fountain notified of urine culture results. No changes made to home prescriptions.
--- NOTE | 2024-09-10 07:53 | PC.NURSE ---
Urine culture results forwarded to hospitalist.
--- NOTE | 2024-09-19 12:59 | EXP.DC.SUM ---
General Admission date:: 09/05/24 Discharge date: 09/08/24 HPI HPI HPI: History of Present Illness HPI narrative: Abby Ace is a 79-year-old female with a past medical history of abdominal hernia who presents to the emergency department due to concern for family for her mental status and decreased energy and appetite. They state that over the last week, she has been more fatigued than normal and just wants to sleep and rest all the time. They state that she has been confused for some time and has been forgetting where she put things at home. They noted that she has a big bruise on her forehead but patient does not remember what caused this and family did not witness anything. Patient has no complaints at this time. She is alert and oriented to self and location but does not know the year. She does not know who the president is. Patient denies any abdominal pain, dysuria, chest pain, shortness of breath, headache or neck pain. Family notes that she does not go to her primary care doctor and they cannot convince her to go. They state that over the last week, she has had decreased oral intake and only eats a small amount of food, which is abnormal for her. Supposedly the fall that resulted in the forehead bruise happened approximately 2 weeks ago. Family is concerned patient may have Alzheimer's. The above as per ER documentation. . Ms. Ace is a 79-year-old female unknown to [facility]. She takes no medicines. Today with interview and assessment she denies any problems. She states she has just not felt well recently. Family is not present for this assessment and all history is obtained from her. See above information obtained from family in the emergency room. She states she is healthy and has no pain, no nausea or vomiting. She does not not feel like eating breakfast this morning. She does not recall any recent falls. With evaluation in the emergency room she had multiple scans and was felt to have a urinary tract infection and possibly pneumonia.She was found to have a fecal impaction. White blood cell count was 9000 with a hemoglobin of 14.4 and hematocrit of 44.7. Bilirubin was elevated at 1.6. TSH was found to be 0.8. She was given a dose of Rocephin 1 g IV. The mag citrate was not given and the fleets enema was not given. She was given a liter of IV fluids. CTA of the chest showed no pulmonary embolism, ground glass opacity in the right upper lobe and superior segment of the right lower lobe with associated mild reticular interstitial prominence likely representing acute inflammation or pneumonitis. CT of the abdomen showed a large left mid abdominal wall hernia containing large and small bowel without obstruction, significant fecal content within the rectum with a rectal diameter measuring 10 cm, bilateral adrenal nodules. CT of the head showed multiple subcortical and deep hypoattenuating white matter foci present likely related to small vessel changes and also can be seen with prior infectious inflammatory insult or prior traumatic event. Nothing to suggest acute intracranial hemorrhage. Cervical spine CT showed no evidence of acute abnormality. EKG shows atrial Fib Hospital Course Hospital Course Hospital Course: On admission patient was given oil retention enema and MiraLAx for her fecal burden. She eventually did have 3-4 stools. Also noted on admission was a new atrial fibs. She was seen by cardiology. She was noted to be asymptomatic with rate control. With her frequent falls and recent head trauma OAC was not initiated due to risk outweighing the benefits. At discharge she was to be placed on a 2-week monitor to assess atrial for burden and rate control. Echocardiogram revealed a 40% ejection fraction with suspicion for underlying coronary artery disease. Aspirin, beta-teto, statin initiated for heart failure; no GDMT due to hypotension and urinary tract infection. Patient was noted to be a very poor eater. She had no respiratory symptoms. Patient did work briefly with physical therapy and was able to walk approximately 300 feet with a rolling walker. On 09/08 she was felt stable to be discharged home. She was to follow-up in the office to [facility] and will continue with her aspirin, atorvastatin, carvedilol, and levofloxacin for urinary tract infection, MiraLAX and sennosides for her constipation. She was discharged to home. Exam Data for Last 24 hours Vital signs and Labs for Last 24 Hours: Temp Pulse Resp BP Pulse Ox O2 Del Method 98 F 66 16 106/56 L 93 L Room Air 09/08/24 08:00 09/08/24 08:00 09/08/24 08:00 09/08/24 08:00 09/08/24 08:00 09/08/24 15:00 Narrative: PE 09/08/2024 Constitutional: Present no acute distress Respiratory: Present CTA bilaterally Cardiac: Present Other (Irregular Rhythm) GI: Present soft and normal bowel sounds; Absent distention or tenderness Extremities: Absent edema Skin: Present intact Neuro: Present alert and awake Results Data Completed and Pending Completed studies during hospitalization [Text1]: 09/05/2024 CT cervical spine: FINDINGS: Bones: Moderate loss of intervertebral disc space with degenerative changes involving C3 through C7 with uncovertebral joint and facet osteoarthrosis resulting in [id number] bilateral neural foraminal stenosis at these levels greatest at C5-C6. The vertebral bodies are maintained in height and alignment. No evidence of acute osseous abnormality. Lungs: Lung apices are normal. Soft tissues: Unremarkable. IMPRESSION: No evidence of acute osseous abnormality. 09/05/2024 CT head IMPRESSION: 1. Multiple subcortical and deep hypoattenuating white matter foci are present, likely related to small vessel senescent changes and can also be seen with prior infectious / inflammatory insult, or prior traumatic events. 2. No hyperattenuating foci are identified to suggest acute intracranial hemorrhage. 09/05/2024 CT Abd/pelvis IMPRESSION: 1. Large left mid abdominal wall hernia containing large and small bowel without obstruction. 2. Significant fecal content within the rectum with rectal diameter measuring up to 10 cm. 3. Bilateral adrenal nodules. Non-emergent adrenal CT is recommended. (Reference: [facility]) 4. Other nonurgent findings as noted. 09/05/2024 CT of Abd/pelvis IMPRESSION: 1. No pulmonary embolus. 2. Ground-glass opacity right upper lobe and superior segment right lower lobe with associated mild reticular interstitial prominence likely represents acute inflammation/pneumonitis. Follow-up is recommended to ensure clearing. 3. Findings consistent with prior granulomatous exposure. 4. Other nonemergent findings as noted. 09/06/2024 ECHO Conclusion Mild to moderate reduction in LV systolic function (LVEF 40%). Regional wall motion abnormalities with presence of severe hypokinesis of the septal, anteroseptal, inferoseptal LV de la rosa. Mild biatrial dilation. Mild MR, mild TR. 09/06/2024 MRI brain MPRESSION: Exam is overall limited by motion artifact. No acute intracranial abnormality identified. Moderate changes of chronic ischemic microvascular disease. Dominant subcutaneous focus near the vertex 2.8 x 1.8 cm in size, that likely represents a sebaceous cyst. 09/05/24 21:30: WBC 9.0, RBC 4.95, Hgb 14.4, Hct 44.7, MCV 90.3, MCH 29.1, MCHC 32.2, RDW 13.2, Plt Count 334, MPV 11.7 H, Neut % (Auto) 78.3, Lymph % (Auto) 14.5, [place] % (Auto) 6.6, Eos % (Auto) 0.2, Baso % (Auto) 0.1, Neut # (Auto) 7.0, Lymph # (Auto) 1.3, [place] # (Auto) 0.6, Eos # (Auto) 0.0, Baso # (Auto) 0.0, Sodium 138, Potassium 4.0, Chloride 98, Carbon Dioxide 27, Anion Gap 17.0 H, BUN 28 H, Creatinine 0.80, Estimated Creat Clear 51, Estimated GFR 70, Est GFR ( Amer) 84, Glucose 95, Calcium 8.6, Magnesium 2.0, Total Bilirubin 1.6 H, AST 30, ALT 14, Alkaline Phosphatase 74, Troponin I < 0.01, NT-Pro-B Natriuret Pep 1170 H, Total Protein 7.5, Albumin 3.7, Globulin 3.8 H, Albumin/Globulin Ratio 1.0 L, TSH 0.80, Free T4 1.73, HCV Ab RICHA w/Rflx PCR Qn Negative, HIV Ag/Ab Combo Qual Negative 09/05/24 21:47: VBG pH 7.39, VBG pCO2 40.5, VBG pO2 44.0 H, VBG HCO3 23.7, VBG Total CO2 24.9, VBG O2 Saturation 80.1 H, VBG Base Excess -1.4, VBG Lactic Acid 2.4 H 09/05/24 23:28: Urine Color Yellow, Urine Appearance Clear, Urine pH 6.0, Ur Specific Bradley 1.020, Urine Protein Trace, Urine Glucose (UA) Negative, Urine Ketones 1+, Urine Blood Negative, Urine Nitrate Positive A, Urine Bilirubin 2+ A, Urine Urobilinogen 2.0, Ur Leukocyte Esterase Trace, Urine WBC 10-20, Ur Squamous Epith Cells 5-10, Urine Bacteria 2+ 09/06/24 01:53: Lactate 1.6, Troponin I < 0.01 09/06/24 04:46: Troponin I < 0.01 DS: Diagnosis Discharge Diagnosis (1) Acute UTI: Status: Resolved Code(s): N39.0 - Urinary tract infection, site not specified (2) Fecal impaction in rectum: Status: Resolved Code(s): K56.41 - Fecal impaction (3) Pneumonia: Status: Deleted Code(s): J18.9 - Pneumonia, unspecified organism (4) Fall: Status: Inactive Code(s): W19.XXXA - Unspecified fall, initial encounter Qualifiers: Encounter type: initial encounter Qualified Code(s): W19.XXXA - Unspecified fall, initial encounter (5) Traumatic ecchymosis of left hand: Status: Inactive Code(s): S60.222A - Contusion of left hand, initial encounter Qualifiers: Encounter type: initial encounter Qualified Code(s): S60.222A - Contusion of left hand, initial encounter (6) Traumatic ecchymosis of left knee: Status: Inactive Code(s): S80.02XA - Contusion of left knee, initial encounter Qualifiers: Encounter type: initial encounter Qualified Code(s): S80.02XA - Contusion of left knee, initial encounter (7) Atrial fibrillation with normal ventricular rate: Status: Acute Code(s): I48.91 - Unspecified atrial fibrillation Meds Home Medications and Allergies Home Medications ?Medication ?Instructions ?Recorded ?Confirmed ?Type aspirin 81 mg tablet,delayed 81 mg PO DAILY #90 tabs 09/08/24 Rx release atorvastatin 40 mg tablet 40 mg PO HS #30 tabs 09/08/24 Rx carvedilol 3.125 mg tablet 3.125 mg PO BID #60 tabs 09/08/24 Rx levofloxacin 500 mg tablet 500 mg PO DAILY #7 tabs 09/08/24 Rx polyethylene glycol 3350 17 gram 17 g PO DAILY #30 ea 09/08/24 Rx oral powder packet (HealthyLax) sennosides 8.6 mg-docusate sodium 2 tab-cap (2 x 8.6-50 mg) PO DAILY 09/08/24 Rx 50 mg tablet (Stimulant Laxative #60 tabs Plus) New Prescriptions to Start Prescriptions: aspirin Lori Henderson atorvastatin Lori Henderson carvedilol Lori Henderson levofloxacin Lori Henderson polyethylene glycol 3350 [HealthyLax] Lori Henderson sennosides-docusate sodium [Stimulant Laxative Plus] Lori Henderson Allergies Allergy/AdvReac Type Severity Reaction Status Date / Time No Known Allergies Allergy Verified 05/01/23 19:39 Discharge Plan Disposition Patient Disposition: Home, Self-Care Discharge Order Discharge Orders: Discharge Order (Routine); Ordered 09/08/24 Ordered By: Lori Henderson Follow up Plan Follow up with: Kiran Camp MD [Staff Physician, Medical] - 09/12/24 2:45 pm Prescriptions/Medication Reconciliation: New polyethylene glycol 3350 [HealthyLax] 17 gram Powder In Packet 17 g PO DAILY Qty: 30 4RF sennosides-docusate sodium [Stimulant Laxative Plus] 8.6-50 mg Tablet 2 tab-cap PO DAILY Qty: 60 4RF atorvastatin 40 mg Tablet 40 mg PO HS Qty: 30 4RF aspirin 81 mg Tablet,Delayed Release (Dr/Ec) 81 mg PO DAILY Qty: 90 2RF carvedilol 3.125 mg Tablet 3.125 mg PO BID Qty: 60 4RF levofloxacin 500 mg tablet 500 mg PO DAILY Qty: 7 0RF Problem Reconciliation Problems Reviewed?: Yes Patient Discharge Instructions ACTIVITY: Up with assistance DIET: advance to your usual diet Patient Instructions: DI for Pneumonia -- Adult, DI for Urinary Tract Infection (UTI), How to Prevent Falls, Stop Light Infection Print Language: Czech Providers Primary Care Provider: Jesús Doyle Admit Provider: Lori Henderson Attending Provider: Lori Henderson
== END 2024-09-08 16:35 | disposition home or self-care (01) | DRG 689 ==
LOC: ER 21:34 → 2ND 23:59
PROVIDERS: Admitting Provider Family Medicine; Emergency Provider Student in an Organized Health Care Education/Training Program; PCP Family Medicine; Visit Provider Family Medicine
DX: N39.0 Urinary tract infection, site not specified (principal); J18.9 Pneumonia, unspecified organism; I50.22 Chronic systolic (congestive) heart failure; K56.41 Fecal impaction; I48.91 Unspecified atrial fibrillation; J98.4 Other disorders of lung; R41.82 Altered mental status, unspecified; S60.222A Contusion of left hand, initial encounter; I44.7 Left bundle-branch block, unspecified; S80.02XA Contusion of left knee, initial encounter; Z87.891 Personal history of nicotine dependence
CPT/HCPCS: 36415; 70450; 70553; 71046; 71275; 72125; 74018; 74177; 80053; 81001; 82803; 83605; 83735; 83880; 84439; 84443; 84484; 85025; 86803; 87086; 87088; 87186; 87389; 93005; 93306; 97110; 97162; 97166; 97530; A9576; J0696; J1956; J7120; Q9967

== ENCOUNTER 2024-11-10 11:44 | Outpatient (CLI) | payer OTHER, MEDICARE, SELFPAY ==
--- OUTSIDE RECORDS SUMMARY | 2024-09-12 10:45 | XMS_ITS ---
Author Organization [facility] Address [address] [id number] Care Team Providers Care Hvac Maintenance Technician Name Role Phone Markus Doyle Primary Care Provider Kiran Camp Unavailable [phone] Allergies Allergen (clinical drug ingredient) Drug/Non Drug Allergy documented on EMR Reaction Allergy Type Onset Date Status hydrocortisone Hydrocortisone swelling Drug Allergy Active Substance with penicillin structure and antibacterial mechanism of action (substance) Penicillins Unknown Drug Allergy Active Reason For Referral Diagnosis 1 Atrial fibrillation, unspecified type (I48.91) Referral Organization [facility] Referring Provider First Name Kiran Referring Provider Last Name Conrado Referring Provider Speciality Family Pra ctice Referred Provider Shira Freitas Referred Provider Specialty Cardiovascul ar Disease General Notes Genesis Rossi 2024 10:05:31 AM > faxed to [facility] Cardiology, Genesis Rossi 09/19/2024 10:35:01 AM > refaxed to [facility] Cardiology Referral Priority Routine Diagnosis 1 Memory loss (R41.3) Referral Organization [facility] Referring Provider First Name Kiran Referring Provider Last Name Conrado Referring Provider Speciality Family Pra ctice Referred Provider Britney De Jesus Referred Provider Specialty Neurology General Notes Genesis Rossi 2024 10:05:56 AM > faxed to [facility] Neurology, Genesis Rossi 09/15/2024 11:10:35 AM > spoke with Amanda; referral received Referral Priority Routine Diagnosis 1 Onycholysis of toena il (L60.1) Referral Organization [facility] Referring Provider First Name Kiran Referring Provider Last Name Conrado Referring Provider Speciality Family Pra ctice Referred Provider Cathie Couhc Referred Provider Specialty Podiatry General Notes Genesis Rossi 2024 10:06:48 AM > faxed to [facility] Podiatry, Genesis Rossi 09/21/2024 10:19:46 AM > Bin states they have tried to call the patient 3 times, but she has not returned the call Referral Priority Routine REASON FOR VISIT [facility] f/u for pneumonia Medications Medication SIG (Take, Route, Frequency, Duration) Notes Start Date End Date Status Coreg 3.125 MG 1 tablet with food O rally Twice a day Active Aspirin 81 MG 1 tablet Orally Once a day Active MiraLax 17 GM/SCOOP 1 scoop mixed with 8 ounces of fluid Orally Once a day Active Atorvastatin Calcium 40 MG 1 tablet Oral ly Once a day Active levoFLOXacin 500 MG 1 tablet Orally Once a day Active Problems Problem Type SNOMED Code ICD Code Onset Dates Problem Status W/U Status Risk Notes Problem Atrial fibrillation (71596803) Atrial fibrillation, unspecified type (I48.91) Active confirmed Problem Memory loss (10461072) Memory loss (R41.3) Active confirmed Vital Signs Weight 133 lbs 09/12/2024 Blood pressure systolic 108 mm Hg 09/13/19 25 Blood pressure diastolic 60 mm Hg 025 Heart Rate 80 /min 09/12/2024 Height 64 in 09/12/2024 BMI 22.83 kg/m2 09/12/2024 Encounters [facility] Date [facility] [address] [facility] [address] [place] [id number] 09/12/2024 Kiran Camp Acute UTI N39.0 ; Community acquired pneumonia, unspecified laterality J18.9 ; Atrial fibrillation, unspecified type I48.91 ; Chronic constipation K59.09 ; Memory loss R41.3 ; Open wound of right upper arm, initial encounter S41.101A ; Onycholysis of toenail L60.1 and BMI 22.0-22.9, adult Z68.22 Assessments Encounter Date Diagnosis (ICD Code) Assessment Notes Treatment Notes Treatment Clinical Notes Section Notes 09/12/2024 Acute UTI (ICD-10 - N39.0) 09/12/2024 Community acquired pneumonia, unspecified laterality (ICD-10 - J18.9) 09/12/2024 Atrial fibrillation, unspecified type (ICD-10 - I48.91) 09/12/2024 Chronic constipation (ICD-10 - K59.09) 09/12/2024 Memory loss (ICD-10 - R41.3) 09/12/2024 Open wound of right upper arm, initial encounter (ICD-10 - S41.101A) 09/12/2024 Onycholysis of toenail (ICD-10 - L60.1) 09/12/2024 BMI 22.0-22.9, adult (ICD-10 - Z68.22) Plan Of Treatment Medication Medication Name Sig Start Date Stop Date Notes Coreg 3.125 MG 1 tablet with food O rally Twice a day Aspirin 81 MG 1 tablet Orally Once a day MiraLax 17 GM/SCOOP 1 scoop mixed with 8 ounces of fluid Orally Once a day Atorvastatin Calcium 40 MG 1 tablet Orally Once a day levoFLOXacin 500 MG 1 tablet Orally Once a day Referrals Referral Date Details 09/12/2024 09/12/2024, Shira Da oul 09/12/2024 09/12/2024, Britney Nascimento vez 09/12/2024 09/12/2024, Cathie Bruce nney Next Appt Details Follow Up: 3 Months, Reason: Progress Notes * Abby KERNDOB:1945 ( 79 yo F)Acc No.[id number]:09/12/2024 Progress Notes Patient: Abby HAIRSTON Provider: Nyasia Camp M.D. :1945 A ge:79 Y S ex:Female Date:09/12/2024 Address:[facility] [address], [facility] [id number] Pcp:Markus Doyle Subjective: * Chief Complaints: * 1 . [facility] f/u for pneumonia. * HPI: H PI: 79 year old female presents with c/o Here for follow up on:?09/05/2024 [facility] hospitalization. Pt was admitted for UTI and fecal impaction in rectum. Pt states she is doing alright since being d/c from hospital. Pt's daughter states that pt is not eating very well. c/o Patient is here today for P t here to establish care. Pt's daughter states that pt has not had a PCP in a very long time. D ermatology: c/o Wound P t's daughter states that pt fell on 09/08 and has an open wound on her rt arm. Pt's daughter has been cleaning wound with Hibiclens and polysporin on pts wound . * ROS: D ERMATOLOGY: no R roxane. n o H jose miguel. G ASTROENTEROLOGY: no N ausea. n o V omiting. U ROLOGY: no D ifficulty urinating. n o B lood in urine. * Medical History: H iatal Hernia. * Surgical History: B reast Biopsy . * Hospitalization/Major Diagno stic Procedure: D enies Past Hospitalization. * Family History: F ather: , coronary artery disease, diagnosed with Heart Disease. M other: , polio. 2 daughter(s) . . * Social History: C URRENT TOBACCO USE: No S moking Status: Patient does NOT smoke, Former Smoker: Yes, Quit smokin. C affeine: yes, frequency:tea. Home smoke detector use: yes. Marital Status: . Past smoking status: no. * Medications: T aking Atorvastatin Calcium 40 MG Tablet 1 tablet Orally Once a day , Taking MiraLax 17 GM/SCOOP Powder 1 scoop mixed with 8 ounces of fluid Orally Once a day , Taking Aspirin 81 MG Tablet Delayed Release 1 tablet Orally Once a day , Taking Coreg 3.125 MG Tablet 1 tablet with food Orally Twice a day , Taking levoFLOXacin 500 MG Tablet 1 tablet Orally Once a day , Discontinued Sulfamethoxazole-Trimethoprim 800-160 MG Tablet 1 tab(s) orally 2 times a day , Medication List reviewed and reconciled with the patient * Allergies: P enicillins, Hydrocortisone: swelling. Objective: * Vitals: W t: 133, Temp: 97.7, BP: 108/60, HR: 80, O2 Sat: 91% on RA, Nurse: anibal, Ht: 64, BMI:22.83. * Examination: G eneral Examination: General Appearance: N AD, using a cane to assist with ambulation. H eart: i rregular rhythm. L ungs: c lear to auscultation. N eurologic Exam: a lert, conversant, pleasantly confused. S kin: r ight proximal lateral forearm with a superficial skin tear, minimal clear drainage on the overlying bandage, fading bruise over the right upper forehead. P eripheral pulses: n ormal (2+) bilaterally. E xtremities: n o leg edema. Assessment: * Assessment: 1. A cute UTI - N39.0 (Primary) 2 . C ommunity acquired pneumonia, unspecified laterality - J18.9 3 . A trial fibrillation, unspecified type - I48.91 ? 4 . C hronic constipation - K59.09 5 . M vonda loss - R41.3 & #160; 6 . O pen wound of right upper arm, initial encounter - S41.101A 7 .?Onycholysis of toenail - L60.1 8 . B ND 22.0-22.9, adult - Z68.22 ? Plan: * Treatment: 2. A trial fibrillation, unspecified type Continue Coreg Tablet, 3.125 MG, 1 tablet with food, Orally, Twice a day; C ontinue Aspirin Tablet Delayed Release, 81 MG, 1 tablet, Orally, Once a day. ? Referral To:Shira Freitas Cardiovascular Disease Reason: 3. C hronic constipation Continue MiraLax Powder, 17 GM/SCOOP, 1 scoop mixed with 8 ounces of fluid, Orally, Once a day.? 4. M vonda loss Referral To:Britney De Jesus Neurology Reason: 5. O nycholysis of toenail Referral To:Cathie Couch Podiatry Reason: 6. O thers Continue Atorvastatin Calcium Tablet, 40 MG, 1 tablet, Orally, Once a day. * Procedure Codes: G 2211 Complex e/m visit add on, 1036F TOBACCO NON-USER, G8420 BMI<30 AND >=22 CALC & DOCU, G8950 PREHTN/HTN BP DOC INDCD F/U DOC, G8752 MOST RECENT SYSTOLIC BP < 140MM HG, G8754 MOST RECENT DIASTOLIC BP < 90MM HG, 3074F SYST BP LT 130 MM HG, 3078F DIAST BP < 80 MM HG * Follow Up: 3 Months * Images: Billing Information: * Visit Code: 96752 Office Visit, Est Pt., Level 4. * Procedure Codes: G2211 Complex e/m visit add on. 1036F TOBACCO NON-USER. G8420 BMI<30 AND >=22 CALC & DOCU. G8950 PREHTN/HTN BP DOC INDCD F/U DOC. G8752 MOST RECENT SYSTOLIC BP < 140MM HG. G8754 MOST RECENT DIASTOLIC BP < 90MM HG. 3074F SYST BP LT 130 MM HG. 3078F DIAST BP < 80 MM HG. * Electronic signature of Gabbi Camp MD on 11/10/2024 at 11:47 AM EDT Sign off status: Pending * Provider: Nyasia Camp M.D. Date: 0 09/12/2024 Generated for Corby isaac/Natanael/Elbaitting on: 0 11/10/2024 11:47 AM EDT History and Physical Notes * HPI (History of Present Illness) Category Sub-Category Detail Notes Category Not es Dermatology Wound Pt's daughter st ates that pt fell on 09/08 and has an open wound on her rt arm. Pt's daughter has been cleaning wound with Hibiclens and polysporin on pts wound HPI Here for follow up on: 5 [facility] hospitalization. Pt was admitted for UTI and fecal impaction in rectum. Pt states she is doing alright since being d/c from hospital. Pt's daughter states that pt is not eating very well Patient is here today for Pt here to [facility]. Pt's daughter states that pt has not had a PCP in a very long time Examination Category Sub-Category Detail Notes Category Not es General Examination Heart: irregular rhythm Lungs: clear to auscultatio n Extremities: no leg edema General Appearance: NAD, using a cane to assist with ambulation Skin: right proximal later al forearm with a superficial skin tear, minimal clear drainage on the overlying bandage, fading bruise over the right upper forehead Neurologic Exam: alert, conversant, p leasantly confused Peripheral pulses: normal (2+) bilatera lly Consultation Request Notes Referral Date Referring Provider Referred Provider Not es 09/12/2024 Krian Camp Yaz 09/12/2024 Kiran Camp Maria 09/12/2024 Kiran Camp, Cathie
--- NOTE | 2024-11-10 | CA_ITS ---
APPROVED REPORT Exam: Pharmacologic Technologist: Francine Servin Stress Nurse: Jocelyne Beach Ht: 5 ft 4 in Wt: 135 lbs BSA: 1.66 m2 HR: 95 bpm BP: 177/72 mmHg Rhythm: Afib with rate control Medical History Medical History: Hyperlipidemia, , Smoking Medications: Aspirin, Atorvastatin, Carvedilol, Polyethylene Glycol, Sennosides-docusate sodium Allergies: No known drug allergies Cardiac Risk Factors: Hyperlipidemia, Smoking Stress Test Details Test: Lexiscan HR Resting HR: 95 bpm Max Heart Rate (APMHR): 143.328810 bpm Target HR (85% APMHR): 121.405051 bpm Recovery HR: 101 bpm BP Resting BP: 177.0/72.0 mmHg Max BP: 177.0/72.0 mmHg Recovery BP: 114.0/76.0 mmHg ECG Resting ECG: Afib with rate control Stress ECG Conclusion Pt had no symptoms Afib present prior to start of test Less than 0.5mm upsloping ST segment changes Nondiagnostic ECG/Lexiscan Electronically signed by : Shira Freitas MD 11/14/2024 01:55:18
--- OUTSIDE RECORDS SUMMARY | 2024-11-10 11:47 | XMS_ITS | Patient Health Record ---
Author Organization [facility] Address [address] [id number] Care Team Providers Care Last Turner Name Role Phone Markus Doyle Primary Care Provider [phone] Kiran Camp Unavailable [phone] Allergies Allergen (clinical drug ingredient) Drug/Non Drug Allergy documented on EMR Reaction Allergy Type Onset Date Status hydrocortisone Hydrocortisone swelling Drug Allergy Active Substance with penicillin structure and antibacterial mechanism of action (substance) Penicillins Unknown Drug Allergy Active Results Component Value Reference Range Notes H-Sputum Culture with Gram S tain Reviewed date:09/20/2024 11:54:56 AM Interpretation:cancelled, pt discharged Performing Lab: Notes/Report: Comment: Induce w/3ml NS neb tx if necessary Cancelled via OM: Order cancelled - Patient discharged Cancel Comments Reason For Referral Diagnosis 1 Atrial fibrillation, unspecified type (I48.91) Referral Organization [facility] Referring Provider First Name Kiran Referring Provider Last Name Conrado Referring Provider [facility] ctice Referred Provider Shira Freitas Referred Provider Specialty Cardiovascul ar Disease General Notes Genesis Rossi 2024 10:05:31 AM > faxed to [facility] Cardiology, Genesis Rossi 09/19/2024 10:35:01 AM > refaxed to [facility] Cardiology Referral Priority Routine Diagnosis 1 Memory loss (R41.3) Referral Organization [facility] Referring Provider First Name Kiran Referring Provider Last Name Conrado Referring Provider [facility] Referred Provider Briteny De Jesus Referred Provider Specialty Neurology General Notes Genesis Rossi 2024 10:05:56 AM > faxed to [facility] Neurology, Genesis Rossi 09/15/2024 11:10:35 AM > spoke with Amanda; referral received Referral Priority Routine Diagnosis 1 Onycholysis of toena il (L60.1) Referral Organization [facility] Referring Provider First Name Kiran Referring Provider Last Name Conrado Referring Provider Speciality [facility] ctice Referred Provider Cathie Couch Referred Provider Specialty Podiatry General Notes Genesis Rossi 2024 10:06:48 AM > faxed to [facility] Podiatry, Genesis Rossi 09/21/2024 10:19:46 AM > Bin states they have tried to call the patient 3 times, but she has not returned the call Referral Priority Routine Medications Medication SIG (Take, Route, Frequency, Duration) Notes Start Date End Date Status levoFLOXacin 500 MG 1 tablet Orally Once a day Active Coreg 3.125 MG 1 tablet with food O rally Twice a day Active Aspirin 81 MG 1 tablet Orally Once a day Active MiraLax 17 GM/SCOOP 1 scoop mixed with 8 ounces of fluid Orally Once a day Active Atorvastatin Calcium 40 MG 1 tablet Oral ly Once a day Active Immunizations Vaccine Route Administration Date Status Comme nts xFlu shot-36 months and older IM Intramuscular 01/01/2006 Administered Problems Problem Type SNOMED Code ICD Code Onset Dates Problem Status W/U Status Risk Notes Problem Memory loss (57049709) Memory loss (R41.3) Active confirmed Problem Atrial fibrillation (10775724) Atrial fibrillation, unspecified type (I48.91) Active confirmed Problem Atrial fibrillation (46445125) Atrial fibrillation with RVR (I48.91) Active confirmed Vital Signs Heart Rate 80 /min 09/12/2024 Blood pressure diastolic 60 mm Hg 09/12/2024 Height 64 in 09/12/2024 Blood pressure systolic 108 mm Hg 09/12/2024 Weight 133 lbs 09/12/2024 BMI 22.83 kg/m2 09/12/2024 Encounters Encounter Location Date Provider Diagnosis [facility] [address] [id number] 09/12/2024 Kiran Camp Acute UTI N39.0 ; Community acquired pneumonia, unspecified laterality J18.9 ; Atrial fibrillation, unspecified type I48.91 ; Chronic constipation K59.09 ; Memory loss R41.3 ; Open wound of right upper arm, initial encounter S41.101A ; Onycholysis of toenail L60.1 and BMI 22.0-22.9, adult Z68.22 [facility] [address] [address] [place] [id number] 09/27/2024 Markus Doyle Assessments Encounter Date Diagnosis (ICD Code) Assessment [...] adult (ICD-10 - Z68.22) Plan Of Treatment No Information Insurance Providers Payer Name Payer Address Payer Phone Subscriber Number Group Number Insured Name Patient Relationship to Insured Coverage Start Date Coverage End Date [facility] [address] [address] [place] [address] [id number] Abby Ace Self - patient is the insured MEDICARE PART B [address] [address] [place] [address] [id number] Abby Ace Self - patient is the insured Medical (General) History Medical History History ICD Code Hiatal Hernia Surgical History Surgery Date(Month/Year) Breast Biopsy
--- NOTE | 2024-11-10 12:00 | NM_ITS ---
APPROVED REPORT Exam: Nuclear Stress Test Indication: palpiations Patient Location: Outpatient Stress Tech: Francine Servin MA Tech:Jamee Davis DOLORESKimberly RT(R)(N) Ht: 5 ft 4 in Wt: 160 lbs Bra Size: b HR: 90 bpm BP: 177/72 mmHg BSA: 1.78 m2 TID: 1.34 BMI: 27.4 History: palpiations Procedure: Patient received 0.4 mg of intravenous Lexiscan, resting heart rate 90 bpm, resting blood pressure 177/72 mmHg, with Lexiscan maximum heart rate achieved was 96 bpm which is 85 % of the maximum predicted heart rate and blood pressure was 127/77 mmHg. With Lexiscan, patient denied any complaint of chest pain. The patient was not able to lay on her abdomen for prone images. Cardiac Stress and Resting SPECT Images: Cardiac Stress and Resting SPECT images were obtained using technetium 99m Myoview 32.8 mCi stress and 10.86 mCi at rest. The patient was unable to lie on her abdomen. Therefore, prone stress imaging could not be performed. This may affect the diagnostic interpretation of the study findings. Resting and stress images in supine positions demonstrate a medium sized, moderate, partially reversible perfusion defect in the basal to mid inferior, septal, and inferoseptal LV de la rosa. There is increase in transient ischemic dilatation ratio (TID 1.34), which may be suggestive of possible multivessel disease or balanced ischemia. Gated imaging demonstrates mild reduction in global LV systolic function. LVEF is calculated at 44%. Conclusion: Medium sized, moderate, partially reversible perfusion defect in the basal to mid inferior, septal, and inferoseptal LV de la rosa. Findings are suggestive of partial reversible ischemia. There is increase in transient ischemic dilatation ratio (TID 1.34), which may be suggestive of possible multivessel disease or balanced ischemia. Gated imaging demonstrates mild reduction in global LV systolic function. LVEF is calculated at 44%. Electronically signed by : hSira Freitas MD 11/14/2024 01:53:55
[2024-11-10 13:30] VITALS: BP 177/72; PULSE 95; RESP 14
[2024-11-10] MEDS: ISOTOPE MYOVIEW (PER STUDY) 1 DOSE IV (13:47)
[2024-11-10] MEDS: SODIUM CHLORIDE 0.9% 10ML SYR (RAD ONLY) 10 ML IV ×2 (13:47)
== END 2024-11-10 23:59 | disposition home or self-care (01) ==
LOC: RAD 11:45
PROVIDERS: PCP Family Medicine; Visit Provider Nurse Practitioner Family
DX: I48.91 Unspecified atrial fibrillation (principal); I50.20 Unspecified systolic (congestive) heart failure; R94.31 Abnormal electrocardiogram [ECG] [EKG]; R94.39 Abnormal result of other cardiovascular function study
CPT/HCPCS: 78452; 93017; 93018; A9502; J2785

== ENCOUNTER 2024-12-01 07:38 | Day surgery (SDC) | payer OTHER, MEDICARE, SELFPAY ==
[2024-12-01] VITALS (14 sets, daily range): BP systolic 123–137; BP diastolic 74–85; PULSE 63–87; RESP 14–18; TEMP 36.5–36.7; O2SAT 92–100; BMI 24.5
--- NOTE | 2024-12-01 07:11 | IR_ITS ---
APPROVED REPORT Patient Location: Outpatient Lagging Machine Operator: Ronald Marsh, RT (R) PROCEDURES Left heart catheterization Left ventriculogram Selective coronary angiogram INDICATION Abnormal Myoview, Angina pectoris Informed consent was obtained prior to the procedure. COMPLICATIONS NONE Estimated Blood Loss: LESS THAN 10 ML TECHNIQUE One percent lidocaine used to anesthetize the right anterior aspect of the wrist. The right radial artery was accessed via the Seldinger technique. A 6 Tamazight sheath was placed in the right radial artery. 2.5 mg of Verapamil, 800 mcg of nitroglycerin, 1mg Lidocaine and 5000 U Heparin were given through the arterial sheath. The JL3 catheter was also used to perform left heart catheterization, left ventriculogram and selective coronary angiogram. At the end of the procedure the sheath was removed good hemostasis was achieved using Traclet band, patient was transferred to the postop holding area in stable condition. ANGIOGRAPHIC RESULTS The left main artery Normal The left anterior descending artery Has proximal and mid vessel 10% luminal regularities. There is moderate tortuosity throughout the mid LAD accompanied by TRACY II flow distally The circumflex artery Nondominant 10% luminal regularities The right coronary artery Dominant with proximal and mid vessel eccentric 20% stenosis The CAMPOS ventriculogram reveals Normal 65% The left ventricular end-diastolic pressure 15 mmHg IMPRESSION Mild nonflow limiting coronary artery disease TRACY II flow down the LAD Normal ejection fraction Borderline LVEDP PLAN 1. Medical management with risk factor modification Electronically signed by : Miguel Aquino MD 12/01/2024 10:18:59
[2024-12-01 08:06] LABS: Hematocrit 35.7 % (37.0-47.0); Hemoglobin 11.0 g/dL (12.2-16.2); Immature Granulocytes % 0.3 %; Mean Corpuscular HGB Conc 30.8 g/dL (31.8-35.4); Mean Corpuscular Hemoglobin 29.5 pg (27.0-31.2); Mean Corpuscular Volume 95.7 fl (81-99); Nucleated Red Blood Cells % 0 %; Platelet Count 290 K/mm3 (142-424); Red Blood Count 3.73 M/mm3 (4.20-5.40); Red Cell Distribution Width-SD 68.3 fL; White Blood Count 6.2 K/mm3 (4.8-10.8)
[2024-12-01 08:25] LABS: Blood Urea Nitrogen 17 mg/dl (7-17); Calcium 9.2 mg/dl (8.4-10.2); Carbon Dioxide 31 mmol/L (22.0-30.0); Creatinine Clearance Estimated 48 mL/min (50-200); Creatinine,Serum 0.80 mg/dl (0.52-1.04); Estimated Glomerular Filt Rate 70 ml/min (>60); GFR (African American) 84 ML/MIN (>60); Glucose 88 mg/dl (74-100)
[2024-12-01] MEDS: HEPARIN 1,000 UNITS/500ML NS (CATH LAB) 3000 UNIT IV (09:44)
[2024-12-01] MEDS: HEPARIN 1,000 UNITS/ML 10ML VIAL (CATH LAB) 5000 UNIT IV (09:47)
[2024-12-01] MEDS: MIDAZOLAM HCL 1MG/ML 5ML VIAL 1 MG IV (09:48)
[2024-12-01] MEDS: NITROGLYCERIN 800MCG/8ML SYR (CATH LAB) 800 MCG IA (09:48)
[2024-12-01] MEDS: 0.9 % SODIUM CHLORIDE 500 ML 25 ML IV (09:48)
[2024-12-01] MEDS: FENTANYL 100MCG/2ML VIAL 50 MCG IV (09:49)
--- NOTE | 2024-12-01 10:25 | SUR.PHASEII ---
report called to ICU, patient transported to ICU for recovery/dishcarge
--- NOTE | 2024-12-01 10:26 | PC.NURSE ---
arrived to the unit with clinical lab clerk staff
[2024-12-01 10:34] LABS: Anion Gap 10.4 mEq/L (5-15); Chloride 103 mmol/L (98-107); Potassium 4.4 mmoL/L (3.5-5.1); Sodium 140 mmol/L (136-145)
--- NOTE | 2024-12-01 13:20 | PC.NURSE ---
left the unit with ICU staff at this time
[2024-12-01] MEDS: IOPAMIDOL-370 (76%);100ML BOTTLE 50 ML IV (14:51)
== END 2024-12-01 13:20 | disposition home or self-care (01) ==
PROVIDERS: PCP Family Medicine; Visit Provider Internal Medicine
PROC: 4A023N7 Measurement of Cardiac Sampling and Pressure, Left Heart, Percutaneous Approach (ICD-10-PCS; CPT 93452; principal; 2024-12-01 11:00)
DX: I25.118 Atherosclerotic heart disease of native coronary artery with other forms of angina pectoris (principal); R94.39 Abnormal result of other cardiovascular function study; R93.1 Abnormal findings on diagnostic imaging of heart and coronary circulation; I50.20 Unspecified systolic (congestive) heart failure; I48.20 Chronic atrial fibrillation, unspecified; I42.9 Cardiomyopathy, unspecified; E78.2 Mixed hyperlipidemia; R53.83 Other fatigue; Z87.891 Personal history of nicotine dependence; Z79.82 Long term (current) use of aspirin; Z79.899 Other long term (current) drug therapy
CPT/HCPCS: 80048; 85025; 93458; 99152; C1725; C1769; J1200; J1644; J2003; J3010; J7040; Q9967

== ENCOUNTER 2024-12-26 09:40 | Outpatient (CLI) | payer OTHER, MEDICARE, SELFPAY ==
[2024-12-26 11:26] LABS: Vitamin B12 205 pg/mL (239-931)
[2024-12-27 14:30] LABS: Antinuclear Antibodies (ANA) Negative (Negative)
[2024-12-27 16:20] LABS: RPR W/RFX Titers Nonreactive (Nonreactive)
== END 2024-12-26 23:59 | disposition home or self-care (01) ==
LOC: LAB 09:42
PROVIDERS: PCP Family Medicine; Visit Provider Specialist
DX: G93.40 Encephalopathy, unspecified (principal); F03.90 Unspecified dementia, unspecified severity, without behavioral disturbance, psychotic disturbance, mood disturbance, and anxiety
CPT/HCPCS: 36415; 82607; 86592